=== PATIENT | female | born 1990 | race Two or more races ===

== ENCOUNTER 2020-07-16 13:33 | Outpatient (REF) | payer OTHER, SELFPAY ==
[2020-07-19 09:42] LABS: BV Int Neg Control Negative (Negative); BV Int Pos Control Positive (Positive)
== END 2020-07-16 13:34 | disposition home or self-care (01) ==
LOC: HO.LAB 13:33
PROVIDERS: PCP Internal Medicine; Visit Provider Advanced Practice Midwife
DX: A59.9 Trichomoniasis, unspecified (principal); N89.8 Other specified noninflammatory disorders of vagina; N91.5 Oligomenorrhea, unspecified; N64.3 Galactorrhea not associated with childbirth
CPT/HCPCS: 87480; 87510; 87660; 99212

== ENCOUNTER 2020-07-28 21:07 | Emergency (ER) | payer OTHER, SELFPAY ==
[2020-07-28 21:08] VITALS: BP 137/89; PULSE 90; RESP 20; TEMP 36.4; O2SAT 100; BMI 24.7
[2020-07-29 00:01] LABS: Glucose Urine UA NEG (NEG); Leukocyte Esterase Urine NEG (NEG); Nitrite Urine NEG (NEG); PH 6.5 (5.0-8.0); Specific Gravity - Urine 1.025 (1.005-1.025); Urine Blood NEG (NEG); Urine Ketones NEG (NEG); Urine Protein NEG (NEG-TRACE)
[2020-07-29 00:02] LABS: Appearance Urine HAZY; Color Urine YELLOW
[2020-07-29 00:03] LABS: Imm Gran Abs Auto 0.01 X10*3/uL (0.00-0.03); Imm Gran Pct Auto 0.1 % (0.0-0.4); MANUAL DIFF FLAG SCAN; PLT CLUMP 1; Red Cell Distribution Width 15.3 % (11.0-16.0); SCAN SMEAR FLAG 1
[2020-07-29 00:05] LABS: Basophils Absolute Auto 0.1 X10*3/uL (0.0-0.2); Basophils Percent Auto 0.6 % (0-2); Eosinophils Absolute Auto 0.2 X10*3/uL (0.0-0.4); Eosinophils Percent Auto 2.3 % (0-4); Hematocrit 35.1 % (37-47); Hemoglobin 11.2 g/dl (12.0-16.0); Lymphocytes Absolute Auto 2.4 X10*3/uL (1.2-4.9); Lymphocytes Percent Auto 29.3 % (20-40); Mean Corpuscular HGB Conc 31.9 g/dl (31.0-35.0); Mean Corpuscular Hemoglobin 22.7 pg (27.0-33.0); Mean Corpuscular Volume 71.1 fL (80-98); Mean Platelet Volume 10.3 fL (9.4-12.3); Monocytes Absolute Auto 1.3 X10*3/uL (0.1-1.2); Monocytes Percent Auto 15.4 % (2-11); Neutrophils Absolute Auto 4.3 X10*3/uL (2.0-8.3); Neutrophils Percent Auto 52.3 % (45-73); Platelet Count 370 X10*3/uL (160-400); Red Blood Count 4.94 X10*6/uL (4.20-5.50); White Blood Count 8.2 X10*3/uL (4.8-10.8)
[2020-07-29 00:06] LABS: SLIDE REVIEW VERIFIED
[2020-07-29 00:07] LABS: Bacteria Urine 2+ /LPF; Mucus Urine 1+ /LPF; Squamous Epithelial Cell Urine 3+ /LPF
[2020-07-29 00:08] LABS: UPreg QC Valid YES; Urine Pregnancy NEGATIVE (NEGATIVE)
[2020-07-29 00:28] LABS: Alanine Aminotransferase 68 U/L (0-31); Albumin Level 4.1 g/dL (3.5-5.0); Alkaline Phosphatase 225 U/L (39-117); Anion Gap 11 (12-20); Aspartate Amino Transferase 60 U/L (5-31); Bilirubin Total 0.4 mg/dL (0.0-1.0); Blood Urea Nitrogen 13 mg/dL (9-16); Calcium 8.9 mg/dL (8.4-10.2); Carbon Dioxide 25 mmol/L (22-29); Chloride 102 mmol/L (96-108); Creatinine Clr Calc Pharmacy 104.7; Estimated Glomerular Filt Rate > 60; Glucose Random 70 mg/dL (60-115); Magnesium 2.1 mg/dL (1.6-2.6); Potassium 3.9 mmol/l (3.3-5.1); Sodium 134 mmol/L (135-145); Total Protein 7.2 g/dL (6.5-8.0)
--- NOTE | 2020-07-29 01:00 | ED.LOWEXIN ---
HPI - Extremity Injury (Lower) General Chief Complaint: Extremity Injury, Lower Stated Complaint: Swollen ankle Time Seen by Provider: 07/28/20 21:45 Source: patient Mode of arrival: ambulatory Limitations: no limitations History of Present Illness HPI Narrative: 29-year-old female who denies any significant past medical history presents today with complaint of intermittent him bilateral ankle pain and pain on the plantar aspect of the feet For the past couple of days and also sometimes will feel like her ankles are swollen. She denies any injury. No rash. No lower extremity weakness. No swelling currently. Also reports she would like a test. No GI symptoms. Treatments prior to arrival: cold therapy Related Data Home Medications Medication Instructions Recorded Confirmed quetiapine 200 mg tablet 200 mg PO BEDTIME 07/16/20 Previous Rx's Medication Instructions Recorded ondansetron HCl 4 mg tablet 4 mg PO ONCE #1 tab 07/16/20 Allergies Allergy/AdvReac Type Severity Reaction Status Date / Time No Known Allergies Allergy Verified 07/16/20 13:41 Review of Systems Review of Systems: Constitutional: No Weight loss, No Fever, No Chills, No Night Sweats, No Fatigue, No Malaise ENT/Mouth: No Hearing loss, No Ear Pain, No Nasal Congestion, No Sinus Pain, No Hoarseness, No sore throat, No Rhinorrhea, No Swallowing Difficulty Eyes: No Eye Pain, No Swelling, No Redness, No Foreign Body, No Discharge, No Vision Changes Cardiovascular: No Chest Pain, No SOB, No Dyspnea on Exertion, No Orthopnea, No Edema, No Palpitations Respiratory: No Cough, No Sputum, No Wheezing, No Smoke Exposure, No Dyspnea Gastrointestinal: No Nausea, No Vomiting, No Diarrhea, No Constipation, No abdominal Pain, No Hematochezia, No Melena Genitourinary: no irregular bleeding, No Dysuria, No Urinary Frequency, No Hematuria, No Urinary Incontinence Musculoskeletal: No joint pain, No Myalgias, No Joint Swelling Skin: No Skin Lesions, No rash Neuro: No Weakness, No Numbness, No Paresthesias,No Dizziness, No Headache Psych: No Social Issues Heme/Lymph: No Bruising, No Bleeding,No Lymphadenopathy Endocrine: No Polyuria, No Polydipsia, No Temperature Intolerance Yes all other systems are reviewed and are negative PMFSH Past Medical History Medical History (Updated 07/29/20 @ 01:01 by Devan Ornelas NP) Bipolar 1 disorder Insomnia PTSD (post-traumatic stress disorder) Surgical History (Updated 07/16/20 @ 13:36 by Lupe Matute) No history of previous surgery Social History Social History (Updated 07/16/20 @ 13:43 by Lupe Matute) Alcohol intake: never Smoking Status: Current every day smoker Tobacco Type: Cigarette Cigarettes Per Day: 3 Use of substances other than those prescribed or required for medical reasons: No Advance Directives: No Advance Directives Information Provided: Yes Gender identity: female Physical Exam Vital Signs: Vital Signs: Last Vital Signs Temp 97.5 F 07/28/20 21:08 Pulse 90 07/28/20 21:08 Resp 20 07/28/20 21:08 BP 137/89 07/28/20 21:08 Pulse Ox 100 07/28/20 21:08 Body Mass Index 24.7 Reviewed Const: General: cooperative and healthy appearing; No acute distress or intoxicated appearing Nutritional Appearance: average body habitus Orientation/consciousness: patient oriented x3 HENMT: Head: Yes normal to inspection Eyes: General: appearance normal, both eyes and all related structures Neck: Neck: Yes normal visual inspection, No positive Brudzinski's sign, No positive Kernig's sign and No tender Thyroid: Thyroid normal Chest: Chest palpation & inspection: normal inspection of the chest Resp: Effort & Inspection: normal respiratory effort Cardio: Jugular venous distension: no JVD : General: Yes no CVA tenderness Back/Spine/Pelvis: Back: no CVA tenderness Skin: General skin exam: no rashes or lesions noted Neuro: General: patient oriented x3 Extrem: Other: negative Homans No lower extremity swelling Sensation within normal limits Full range of motion General: Yes normal to inspection Course Course Course Narrative: Lab findings reviewed slight elevation in LFT no previous to compare to. Question chronicity of this. No abdominal pain nausea vomiting diarrhea. As it relates to the intermittent swelling below the ankles no swelling present at this time although she reports it feels like feet sometimes feel like swelling and feels well right now. Upon re-evaluation she asked if this could be sign of COVID and she knows that [place] at the mall and there is lot of people with COVID and this is 1 of her concerns. COVID test was also offered she declined she said she will come back if she knows she has been around advancement positive. MDM - Extremity Injury (Lower) Lab Data Result diagrams: 07/28/20 23:55 07/28/20 23:55 Labs: Lab Results 07/28/20 07/28/20 07/28/20 Range/Units 23:55 23:55 23:55 WBC 8.2 (4.8-10.8) X10*3/uL RBC 4.94 (4.20-5.50) X10*6/uL Hgb 11.2 L (12.0-16.0) g/dl Hct 35.1 L (37-47) % MCV 71.1 L (80-98) fL MCH 22.7 L (27.0-33.0) pg MCHC 31.9 (31.0-35.0) g/dl RDW 15.3 (11.0-16.0) % Plt Count 370 (160-400) X10*3/uL MPV 10.3 (9.4-12.3) fL Immature Gran % (Auto) 0.1 (0.0-0.4) % Neut % (Auto) 52.3 (45-73) % Lymph % (Auto) 29.3 (20-40) % [place] % (Auto) 15.4 H (2-11) % Eos % (Auto) 2.3 (0-4) % Baso % (Auto) 0.6 (0-2) % Lymph # (Auto) 2.4 (1.2-4.9) X10*3/uL [place] # (Auto) 1.3 H (0.1-1.2) X10*3/uL Eos # (Auto) 0.2 (0.0-0.4) X10*3/uL Baso # (Auto) 0.1 (0.0-0.2) X10*3/uL Abs Immat Gran (auto) 0.01 (0.00-0.03) X10*3/uL Absolute Neuts (auto) 4.3 (2.0-8.3) X10*3/uL Absolute Nucleated RBC 0.000 (0.0-0.012) X10*3/uL Nucleated RBC % (auto) 0.0 (0.0-0.2) /100WBC Smear Tech's Comments VERIFIED Sodium 134 L (135-145) mmol/L Potassium 3.9 (3.3-5.1) mmol/l Chloride 102 (96-108) mmol/L Carbon Dioxide 25 (22-29) mmol/L Anion Gap 11 L (12-20) BUN 13 (9-16) mg/dL Creatinine 0.67 (0.5-1.4) mg/dL Estim Creat Clear Calc 104.7 Estimated GFR > 60 Random Glucose 70 (60-115) mg/dL Calcium 8.9 (8.4-10.2) mg/dL Magnesium 2.1 (1.6-2.6) mg/dL Total Bilirubin 0.4 (0.0-1.0) mg/dL AST 60 H (5-31) U/L ALT 68 H (0-31) U/L Alkaline Phosphatase 225 H (39-117) U/L Total Protein 7.2 (6.5-8.0) g/dL Albumin 4.1 (3.5-5.0) g/dL Urine Color YELLOW Urine Appearance HAZY Urine pH 6.5 (5.0-8.0) Ur Specific [place] 1.025 (1.005-1.025) Urine Protein NEG (NEG-TRACE) MG/DL Urine Glucose (UA) NEG (NEG) MG/DL Urine Ketones NEG (NEG) MG/DL Urine Blood NEG (NEG) Urine Nitrite NEG (NEG) Ur Leukocyte Esterase NEG (NEG) Urine RBC 1-4 (0) /HPF Urine WBC 1-4 (0-4) /HPF Ur Squamous Epith Cells 3+ /LPF Urine Bacteria 2+ /LPF Urine Mucus 1+ /LPF Urine Test NEGATIVE (NEGATIVE) Discharge Plan Discharge Clinical Impression: Arthralgia of ankle Qualifiers: Laterality: bilateral Qualified Code(s): M25.571 - Pain in right ankle and joints of right foot Patient Disposition: Home, Self-Care Instructions: Arthralgia (ED) Prescriptions: No Action ondansetron HCl [Zofran] 4 mg tablet 4 mg PO ONCE Qty: 1 RF: 0 Referrals: Melissa Conrad MD [Primary Care Provider] - 5 days Interventions: ED Discharge Assessment Last Done: 07/29/20 01:10 Discharge Date/Time: 07/29/20 01:10
== END 2020-07-29 01:10 | disposition home or self-care (01) ==
PROVIDERS: Nurse Practitioner Primary Care; Emergency Provider Student in an Organized Health Care Education/Training Program; PCP Internal Medicine
DX: M25.571 Pain in right ankle and joints of right foot (principal); M25.572 Pain in left ankle and joints of left foot; F17.210 Nicotine dependence, cigarettes, uncomplicated; Z71.6 Tobacco abuse counseling; Z79.899 Other long term (current) drug therapy
CPT/HCPCS: 36415; 80053; 81001; 81025; 83735; 85025; 99283; 99284

== ENCOUNTER 2020-10-28 17:16 | Outpatient (REF) | payer OTHER, SELFPAY ==
[2020-10-28 17:54] LABS: MANUAL DIFF FLAG NO
[2020-10-28 17:57] LABS: Basophils Percent Auto 0.4 % (0-2); Eosinophils Absolute Auto 0.1 X10*3/uL (0.0-0.4); Eosinophils Percent Auto 1.4 % (0-4); Hemoglobin 12.4 g/dl (12.0-16.0); Imm Gran Abs Auto 0.02 X10*3/uL (0.00-0.03); Imm Gran Pct Auto 0.2 % (0.0-0.4); Lymphocytes Absolute Auto 2.6 X10*3/uL (1.2-4.9); Lymphocytes Percent Auto 29.3 % (20-40); Mean Corpuscular HGB Conc 31.8 g/dl (31.0-35.0); Mean Corpuscular Hemoglobin 23.3 pg (27.0-33.0); Mean Corpuscular Volume 73.2 fL (80-98); Mean Platelet Volume 10.2 fL (9.4-12.3); Monocytes Absolute Auto 0.7 X10*3/uL (0.1-1.2); Monocytes Percent Auto 8.1 % (2-11); Neutrophils Absolute Auto 5.4 X10*3/uL (2.0-8.3); Neutrophils Percent Auto 60.6 % (45-73); Platelet Count 452 X10*3/uL (160-400); Red Blood Count 5.33 X10*6/uL (4.20-5.50); Red Cell Distribution Width 18.8 % (11.0-16.0)
[2020-10-28 18:21] LABS: Alanine Aminotransferase 229 U/L (0-31); Albumin Level 4.5 g/dL (3.5-5.0); Alkaline Phosphatase 268 U/L (39-117); Anion Gap 10 (12-20); Aspartate Amino Transferase 173 U/L (5-31); Bilirubin Total 0.4 mg/dL (0.0-1.0); Blood Urea Nitrogen 17 mg/dL (9-16); Calcium 9.3 mg/dL (8.4-10.2); Carbon Dioxide 27 mmol/L (22-29); Chloride 106 mmol/L (96-108); Cholesterol 184 mg/dL; Estimated Glomerular Filt Rate > 60; Glucose Random 73 mg/dL (60-115); HDL Cholesterol 68 mg/dL; LDL Cholesterol Calculated 101 mg/dl; Potassium 4.4 mmol/L (3.3-5.1); Sodium 139 mmol/L (135-145); Triglycerides 79 mg/dL
[2020-10-28 18:41] LABS: Ferritin 16 ng/mL (10-122); TSH reflex Free T4 0.71 uIU/mL (0.32-4.0); Thyroid Stimulating Hormone 0.73 uIU/mL (0.32-4.0)
[2020-10-30 09:06] LABS: Follicle Stimulating Hormone 4.5 mIU/mL; Prolactin 2.8 ng/mL
[2020-10-30 09:57] LABS: DHEA Sulfate 150 mcg/dL (23-266)
[2020-11-03 19:12] LABS: Testosterone, Free 3.2 pg/mL (0.1-6.4); Testosterone, Total 33 ng/dL (2-45)
== END 2020-10-28 17:17 | disposition home or self-care (01) ==
LOC: HO.LAB 17:16
PROVIDERS: Advanced Practice Midwife; PCP Internal Medicine; Visit Provider Internal Medicine
DX: F31.9 Bipolar disorder, unspecified (principal); F43.12 Post-traumatic stress disorder, chronic; R53.83 Other fatigue; N91.5 Oligomenorrhea, unspecified; N64.3 Galactorrhea not associated with childbirth
CPT/HCPCS: 36415; 80053; 80061; 82627; 82728; 83001; 83498; 84146; 84402; 84403; 84443; 85025

== ENCOUNTER → 2020-11-16 15:47 | Outpatient (BNVA) | payer OTHER, SELFPAY | PROVIDERS: Visit Provider Advanced Practice Midwife | CPT/HCPCS: Q3014 ==

== ENCOUNTER 2021-03-16 09:47 | Emergency (ER) | payer OTHER, SELFPAY ==
[2021-03-16 09:52] VITALS: BP 136/78; PULSE 94; RESP 18; TEMP 35.9; O2SAT 99; BMI 25.6
--- NOTE | 2021-03-16 10:14 | ED.GENADULT ---
HPI - General Adult General Chief complaint: General Medical Stated complaint: headache, congestion Time Seen by Provider: 03/16/21 10:14 Source: patient Mode of arrival: ambulatory Limitations: no limitations History of Present Illness HPI narrative: patient has not been vaccinated for COVID, nasal congestion, headache for one week, cough Onset (ago): week(s) Location: head Radiation: non-radiation Severity: mild Treatments prior to arrival: none Related Data Home Medications Medication Instructions Recorded Confirmed quetiapine 200 mg tablet 200 mg PO BEDTIME 07/16/20 Previous Rx's Medication Instructions Recorded ondansetron HCl 4 mg tablet 4 mg PO ONCE #1 tab 07/16/20 fluticasone propionate [Flonase 1 spray INTRANASAL DAILY #16 g 03/16/21 Allergy Relief] Allergies Allergy/AdvReac Type Severity Reaction Status Date / Time No Known Allergies Allergy Verified 11/16/20 15:48 Review of Systems Constitutional: Constitutional: Reports no additional constitutional complaints Eyes: Eyes: Reports no additional eye complaints ENT: Denies dizziness Cardiovascular: Cardiovascular: Reports no additional cardiovascular complaints Respiratory: Respiratory: Reports as per HPI Gastrointestinal: Gastrointestinal: Reports no additional gastrointestinal complaints Genitourinary: Genitourinary: Reports no additional female genitourinary complaints Musculoskeletal: Musculoskeletal: Reports no additional musculoskeletal complaints Integumentary/Breasts: Skin/Breast: Denies rash Neurologic: Reports system reviewed and no additional complaints, except as documented, Denies dizziness and Denies Sensory deficit (Neuro) Psychiatric: Psychiatric: Denies anxiety PMFSH Past Medical History Medical History Bipolar 1 disorder Insomnia PTSD (post-traumatic stress disorder) Surgical History No history of previous surgery Social History Social History Alcohol intake: never Cigarettes Per Day: 3 Advance Directives: Yes Advance Directives Information Provided: No Advance Directives on File: No Gender identity: female Physical Exam Vital Signs: Vital Signs: Last Vital Signs Temp 96.6 F L 03/16/21 09:52 Pulse 94 03/16/21 09:52 Resp 18 03/16/21 09:52 BP 136/78 03/16/21 09:52 Pulse Ox 99 03/16/21 09:52 Body Mass Index 25.6 Const: General: healthy appearing Nutritional Appearance: average body habitus Orientation/consciousness: oriented to person and patient oriented x3 Limitations: no limitations HENMT: Other: bilateral TMs with retractions and fluid Head: Yes normal to inspection Ears: external ears normal General nose exam: Normal external nose present Mouth: Normal oral and palatal mucosa present and oropharynx normal Throat: Yes posterior oropharynx normal Eyes: General: appearance normal, both eyes and all related structures Neck: Other: supple Neck: Yes normal visual inspection Chest: Chest palpation & inspection: normal inspection of the chest Resp: Auscultation: clear to auscultation bilaterally Cardio: Jugular venous distension: no JVD Rate: regular rate Rhythm: regular rhythm Heart sounds: S1 normal heart sound present and S2 normal heart sound present GI: Inspection: Yes normal to inspection Palpation (GI): Soft to palpation, nontender and No hepatosplenomegaly present Auscultation: normal bowel sounds : General: Yes no CVA tenderness Back/Spine/Pelvis: Back: no CVA tenderness Skin: General skin exam: no rashes or lesions noted Neuro: General: oriented to person and patient oriented x3 Cranial nerves: Yes CN's II-XII intact bilaterally Motor exam (neuro): 5/5 motor strength present throughout Sensory Exam: No Sensory deficit (Neuro) Extrem: General: Yes normal to inspection Psych: Appearance: grossly normal Course Reevaluation(s) Reevaluation #1: patient is will not obtain xray at this time, lungs clear, oxygen is normal. Will treat for sinusitis Time: 11:28 Medical Decision Making Lab Data Labs: Lab Results 03/16/21 03/16/21 Range/Units 10:40 10:40 Urine Test POSITIVE H (NEGATIVE) Coronavirus (PCR) NEGATIVE (Negative) Influenza Type A (PCR) NEGATIVE (Negative) Influenza Type B (PCR) NEGATIVE (Negative) RSV RNA Qual (PCR) NEGATIVE (Negative) Discharge Plan Discharge Clinical Impression: Sinusitis Qualifiers: Sinusitis location: frontal Chronicity: acute Recurrence: non-recurrent Qualified Code(s): J01.10 - Acute frontal sinusitis, unspecified Qualifiers: Weeks of gestation: unspecified Qualified Code(s): Z34.90 - Encounter for supervision of normal , unspecified, unspecified trimester Patient Disposition: Home, Self-Care Instructions: (ED), Sinusitis (ED) Prescriptions: New fluticasone propionate [Flonase Allergy Relief] 50 mcg/actuation spray,suspension 1 spray intranasal DAILY Qty: 16 RF: 0 No Action ondansetron HCl [Zofran] 4 mg tablet 4 mg PO ONCE Qty: 1 RF: 0 Referrals: Melissa Conrad MD [Primary Care Provider] - 1 week Chris Medley MD [Physician] - 1 week
[2021-03-16 10:51] LABS: UPreg QC Valid YES; Urine Pregnancy POSITIVE (NEGATIVE)
[2021-03-16 11:24] LABS: Influenza A PCR NEGATIVE (Negative); Influenza B PCR NEGATIVE (Negative); Resp Syncy Virus RNA Qual PCR NEGATIVE (Negative); SARS COV2 PCR INHOUSE NEGATIVE (Negative)
== END 2021-03-16 11:40 | disposition home or self-care (01) ==
PROVIDERS: Emergency Provider Emergency Medicine; PCP Internal Medicine
DX: O99.519 Diseases of the respiratory system complicating pregnancy, unspecified trimester (principal); J01.10 Acute frontal sinusitis, unspecified; Z3A.00 Weeks of gestation of pregnancy not specified; Z20.822 Contact with and (suspected) exposure to COVID-19
CPT/HCPCS: 0241U; 36415; 81025; 99283

== ENCOUNTER → 2021-03-24 13:39 | Outpatient (BNVA) | payer OTHER, SELFPAY | PROVIDERS: Visit Provider Advanced Practice Midwife | DX: N92.6 Irregular menstruation, unspecified (principal) | CPT/HCPCS: 99212 ==

== ENCOUNTER 2021-03-31 10:35 | Outpatient (REF) | payer OTHER, SELFPAY ==
--- NOTE | ~2021-03-31 | US_ITS ---
EXAMINATION: US OBSTETRICAL ULTRASOUND CLINICAL INFORMATION: Irregular menstruation COMPARISON: None. LMP: 02/13/2021. Gestational age by maternal dates is 6 weeks 4 days. Estimated date of delivery by maternal dates is 11/20/2021. TECHNIQUE: Transabdominal imaging of pelvis was performed. FINDINGS: There is a single intrauterine gestational sac with visible yolk sac, embryo/fetus, and cardiac activity. There is no significant subchorionic hemorrhage or hematoma. HR: 138 beats per minute. CRL (crown rump length): 0.90 cm . Gestational age by ultrasound 7 weeks and 0 days. ALAYNA (estimated date of delivery): 11/17/2021. +/- 4 days. MATERNAL ADNEXA: The right maternal ovary measures 3.9 x 1.5 x 2.3 cm. The left maternal ovary measures 3.5 x 2.4 x 2.9 cm. There is no significant maternal adnexal mass. No maternal pelvic ascites. US/US OB <= 14 weeks fetus IMPRESSION: 1. Single intrauterine gestation with ultrasound gestational age of 7 weeks and 0 days +/- 4 days. 2. Estimated date of delivery is 11/17/2021 +/- 4 days. 3. No maternal adnexal mass or pelvic ascites.
== END 2021-03-31 10:36 | disposition home or self-care (01) ==
LOC: HO.HMGCX 10:35
PROVIDERS: Visit Provider Advanced Practice Midwife
DX: Z34.91 Encounter for supervision of normal pregnancy, unspecified, first trimester (principal)
CPT/HCPCS: 76801

== ENCOUNTER 2021-05-12 12:22 | Emergency (ER) | payer OTHER, SELFPAY ==
[2021-05-12 12:35] VITALS: BP 129/80; PULSE 89; RESP 18; TEMP 36.8; O2SAT 100; BMI 27.4
--- NOTE | 2021-05-12 14:26 | ED_ITS ---
HPI - General Adult General Chief complaint: General Medical Stated complaint: vaginal burn ?yeast inf Time Seen by Provider: 05/12/21 14:17 Source: patient Limitations: no limitations History of Present Illness HPI narrative: Patient presents to the ER with complaints of vaginal itching and burning. Patient is a . Patient states she recently was seen was a [facility] and started on antibiotic for UTI although she did have symptoms. After taking the antibiotics while she began to have some burning and itching in the vaginal area. Patient denies any history of chlamydia gonorrhea in the past. Patient states this is her 1st . Patient denies nausea vomiting fever chills. Related Data Previous Rx's Medication Instructions Recorded fluticasone propionate 50 1 spray INTRANASAL DAILY #16 g 03/16/21 mcg/actuation nasal spray,suspension (Flonase Allergy Relief) vitamin with calcium 1 tab PO DAILY #30 tab 03/24/21 no.72-iron 27 mg-folic acid 1 mg tablet ( Vitamins Plus Low Iron) clotrimazole 2 % vaginal cream 1 appful VAGINAL BEDTIME 3 Days g 05/12/21 (Clotrimazole 3 Day) metronidazole 500 mg tablet 500 mg PO BID 7 Days #14 tab 05/12/21 (Flagyl) Allergies Allergy/AdvReac Type Severity Reaction Status Date / Time No Known Allergies Allergy Verified 05/12/21 12:35 Review of Systems Constitutional: Constitutional: Denies chills, Denies fatigue and Denies fever(s) Cardiovascular: Cardiovascular: Denies chest pain and Denies dyspnea Respiratory: Respiratory: Denies dyspnea Gastrointestinal: Gastrointestinal: Denies diarrhea, Denies nausea and Denies vomiting Genitourinary: Genitourinary: Reports vaginal discharge and Reports vaginal pruritus Musculoskeletal: Musculoskeletal: Reports no additional musculoskeletal complaints Neurologic: Reports system reviewed and no additional complaints, except as documented Endocrine: Endocrine: Denies fatigue PMFSH Past Medical History Attestation statement: The following information was validated with the patient. Medical History Bipolar 1 disorder Insomnia PTSD (post-traumatic stress disorder) Surgical History No history of previous surgery Social History Social History Alcohol intake: never Patient Tobacco Use Status: Former Tobacco user Cigarettes Per Day: 3 Advance Directives: No Advance Directives Information Provided: No Patient : Yes Gender identity: Female Physical Exam Vital Signs: Vital Signs: Last Vital Signs Temp 97.2 F 05/12/21 15:29 Pulse 75 05/12/21 15:29 Resp 16 05/12/21 15:29 BP 131/82 05/12/21 15:29 Pulse Ox 99 05/12/21 15:29 Body Mass Index 27.4 vital signs have been reviewed as normal and appeared to be correct. Blood pressure normal. Heart rate normal. Respiration rate normal. Temperature normal. Oxygen saturation normal. Appearance: Alert. Oriented X3. No acute distress. Head: Normal external exam. Normocephalic. Atraumatic. Eyes: PERRLA. EOMI. Conjunctiva and sclera normal. Eyelids normal. ENT: Pharynx normal. Uvula midline. Moist mucous membranes. CVS: Heart regular rate and rhythm no murmurs and rubs Respiratory: Breath sounds are clear to auscultation bilaterally. No accessory muscle use noted. Abdomen: Soft nontender no rebound or guarding positive bowel sound exam: No cervical motion tenderness vaginal vault some white discharge present no adnexal tenderness Back: Full range of motion noted. Skin: Skin warm and dry. Normal skin color. Normal skin turgor. No rashes/lesions/lacerations noted. Extremities: No lower extremity edema. Extremities exhibit normal range of motion. Extremities nontender. Neuro: Oriented X 3. No motor deficit. No sensory deficit. Reflexes normal. Course Course Course Narrative: UTI Yeast infection Bacterial vaginosis Chlamydia Gonorrhea Pelvic exam done bacterial vaginosis Trichomonas a views cultures sent UA chlamydia gonorrhea sent Case discussed with pharmacist and Dr. Hernandez will treat with Flagyl 500 mg b.i.d. x7 days for Trichomonas and clotrimazole for 3 days for yeast infection. Medical Decision Making Lab Data Labs: Lab Results 05/12/21 Range/Units 14:33 Urine Color YELLOW Urine Appearance CLEAR Urine pH 6.5 (5.0-8.0) Ur Specific [place] 1.020 (1.005-1.025) Urine Protein NEG (NEG-TRACE) MG/DL Urine Glucose (UA) NEG (NEG) MG/DL Urine Ketones NEG (NEG) MG/DL Urine Blood NEG (NEG) Urine Nitrite NEG (NEG) Ur Leukocyte Esterase TRACE H (NEG) Urine RBC 0-2 (0) /HPF Urine WBC 10-14 H (0-4) /HPF Ur Squamous Epith Cells 1+ /LPF Urine Bacteria TRACE /LPF Urine Mucus 1+ /LPF Discharge Plan Discharge Clinical Impression: Trichomonas infection, Vaginal yeast infection Patient Disposition: Home, Self-Care Instructions: Trichomoniasis (ED), Yeast Infection (ED) Prescriptions: New metronidazole [Flagyl] 500 mg tablet 500 mg PO BID 7 Days Qty: 14 RF: 0 Clotrimazole 3 Day 2 % cream 1 appful vaginal BEDTIME 3 Days RF: 0 No Action fluticasone propionate [Flonase Allergy Relief] 50 mcg/actuation spray,suspension 1 spray intranasal DAILY Qty: 16 RF: 0 Vitamin Plus Low Iron 27 mg iron- 1 mg tablet 1 tab PO DAILY Qty: 30 RF: 11
[2021-05-12 14:52] LABS: Glucose Urine UA NEG (NEG); Leukocyte Esterase Urine TRACE (NEG); Nitrite Urine NEG (NEG); PH 6.5 (5.0-8.0); UACC Culture Trigger YES; Urine Blood NEG (NEG); Urine Ketones NEG (NEG); Urine Protein NEG (NEG-TRACE)
[2021-05-12 15:00] LABS: Appearance Urine CLEAR; Color Urine YELLOW
[2021-05-12 15:12] LABS: Bacteria Urine TRACE /LPF; Mucus Urine 1+ /LPF; RBC Urine 0-2 /HPF (0); Squamous Epithelial Cell Urine 1+ /LPF
[2021-05-12 15:29] VITALS: BP 131/82; PULSE 75; RESP 16; TEMP 36.2; O2SAT 99
[2021-05-12 16:45] LABS: CT PCR NOT DETECTED (Not Detect.); NG PCR NOT DETECTED (Not Detect.)
[2021-05-13 08:46] LABS: BV Int Neg Control Negative (Negative); BV Int Pos Control Positive (Positive)
== END 2021-05-12 16:08 | disposition home or self-care (01) ==
PROVIDERS: Physician Assistant; Emergency Provider Emergency Medicine; PCP Internal Medicine
DX: A59.01 Trichomonal vulvovaginitis (principal); Z87.891 Personal history of nicotine dependence; Z79.899 Other long term (current) drug therapy
CPT/HCPCS: 81001; 87086; 87480; 87491; 87510; 87591; 87660; 99284

== ENCOUNTER 2021-06-03 13:40 | Outpatient (REF) | payer OTHER, SELFPAY | END 2021-06-03 13:41 | disposition home or self-care (01) | LOC: HO.LAB 13:40 | PROVIDERS: PCP Internal Medicine; Visit Provider Internal Medicine | DX: Z33.1 Pregnant state, incidental (principal); Z20.822 Contact with and (suspected) exposure to COVID-19; H91.11 Presbycusis, right ear; G44.209 Tension-type headache, unspecified, not intractable; F17.201 Nicotine dependence, unspecified, in remission | CPT/HCPCS: C9803; U0003; U0005 ==

== ENCOUNTER 2022-09-07 16:38 | Emergency (ER) | payer OTHER, SELFPAY ==
--- OUTSIDE RECORDS SUMMARY | 2022-09-07 17:13 | XMS_ITS | Continuity of Care Document ---
:1990 Author Organization [facility] Address [address] [place] [id number]- Care Team Providers Name Role Phone Melissa Conrad MD Primary Care Physician [id number] Date(s): 12/11/20 - 12/11/[address] [address]- Discharge Disposition: A-D/C Home Attending Physician: Luther Munson MD Admitting Physician: Luther Munson MD Referring Physician: Not on Staff, Referring MD Allergies, Adverse Reactions, Alerts Substance Reaction Severity Status NKA Active Medications Keflex monohydrate 500 mg oral capsule = 500 mg, By Mouth, 4 times a day, # 20 capsule, 0 Refills, Maintenance, 08/02/19 1:38:07 EST Start Date: 08/02/19 Status: OrderedKeflex monohydrate 500 mg oral capsule 1 capsule = 500 mg, By Mouth, Every 12 hours, for 7 days, # 14 capsule, 0 Refills, Acute 12/18/20 6:40:00 EDT, 12/11/20 6:40:00 EDT, Capsule, [facility] #[id number], Partial fill upon patient request if the prescription is for a schedule II opioi... Start Date: 12/11/20 Stop Date: 12/18/20 Status: Orderedondansetron 4 mg oral tablet 1 tablet = 4 mg, By Mouth, Once, # 15 tablet, 0 Refills, Soft Stop, 08/02/19 1:40:41 EST Start Date: 08/02/19 Status: OrderedProzac Capsule 20 mg, By Mouth, Daily, Maintenance, 07/24/12 15:50:33 Start Date: 07/24/12 Status: OrderedSeroquel Tablet = 50 mg, By Mouth, 2 times a day, 0 Refills, Maintenance, Tablet Start Date: 07/24/12 Status: Ordered Vital Signs Most recent to oldest [Reference 1 2 3 Range]: Oxygen Saturation [94-100 %] 97 % 98 % (12/11/20 7:18 AM) (12/11/20 4:42 AM) Pulse Rate [55-90 bpm] 107 bpm 92 bpm 95 bpm *H* *H* *H* (12/11/20 7:18 AM) (12/11/20 6:30 AM) (12/11/20 6:17 A M) Blood Pressure [90-138/55-84 mm 127/70 mm Hg 128/86 mm Hg 131/86 mm Hg Hg] (12/11/20 7:18 AM) (12/11/20 6:17 AM) (12/11/20 4:42 A M) Respiratory Rate [16-30 br/min] 18 br/min 16 br/min 96 br/min (12/11/20 7:18 AM) (12/11/20 6:30 AM) *H* (12/11/20 6:17 AM) Temperature [96.8-100.4 DegF] 98.8 DegF 98.2 DegF (12/11/20 7:18 AM) (12/11/20 4:42 AM) Mode of Delivery (Oxygen) Room air Room air (12/11/20 7:18 AM) (12/11/20 4:42 AM) Blood pressure sites Arm, left (12/11/20 4:42 AM) Temperature Route Oral Oral (12/11/20 7:18 AM) (12/11/20 4:42 AM) Social History Social History Type Response Tobacco Use: 4 or less cigarettes(le ss than 1/4 pack)/day in last 30 days. Sex
--- OUTSIDE RECORDS SUMMARY | 2022-09-07 17:13 | XMS_ITS | Continuity of Care Document ---
:1990 Author Organization [facility] Address [address] [place] [id number]- Care Team Providers Name Role Phone Melissa Conrad MD Primary Care Physician Encounter [facility] Date(s): 11/17/21 - 12/27/[address] [address]- Attending Physician: Toma Santacruz DO Referring Physician: Iris Curran CNM Allergies, Adverse Reactions, Alerts No Known Allergies Immunizations Given and Recorded Vaccine Date Status Refusal Reason tetanus/diphtheria/pertussis, acel(Tdap) 08/30/21 Given Medications docusate-senna 50 mg-187 mg oral tablet 1 tablet, By Mouth, Daily at bedtime, # 30 tablet, 0 Refills, Maintenance, 11/28/21 7:44:00 EDT, Tablet, [facility] #[id number], Partial fill upon patient request if the prescription is for a schedule II opioid drug., 1 tablet By Mouth Daily at b... Start Date: 11/28/21 Status: Orderedferrous sulfate 325 mg oral tablet 1 tablet = 325 mg, By Mouth, 2 times a day, # 60 tablet, 3 Refills, Maintenance, 05/06/21 8:53:00 EDT, [facility] #[id number], Partial fill upon patient request if the prescription is for a schedule II opioid drug., 158, cm, 05/05/21 18:37:00 EDT... Start Date: 05/06/21 Status: Orderedibuprofen 600 mg oral tablet 600 mg, 1, tablet, By Mouth, Every 6 hours, # 50 tablet, Refills 0, Tot. Refills 0, Maintenance, 11/28/21 7:41:00 EDT, Route to Pharmacy Electronically, [facility] #[id number], Partial fill upon patient request if the prescription is for a schedu... Start Date: 11/28/21 Status: OrderedoxyCODONE 5 mg oral tablet 5 mg, 1, tablet, By Mouth, Every 6 hours, PRN, # 10 tablet, Refills 0, Tot. Refills 0, Acute 12/29/21 0:00:00 EDT, for pain, 11/28/21 7:42:00 EDT, Route to Pharmacy Electronically, [facility]#[id number], Partial fill upon patient request, 158, c... Start Date: 11/28/21 Stop Date: 12/29/21 Status: OrderedTylenol 325 mg oral capsule 2 capsule = 650 mg, By Mouth, Every 4 hours, PRN as needed for pain, # 50 capsule, 0 Refills, Maintenance, 11/28/21 7:41:00 EDT, Capsule, [id number], Partial fill upon patient request if the prescription is for a schedule II opioid drRicky Start Date: 11/28/21 Status: Ordered Problem List Condition Effective Dates Status Health Status Informant Chronic bipolar disorder(Confirmed) Active History of trichomoniasis(Confirmed) Active H/O trichomonal vaginitis Active -2017(Confirmed) History of COVID-19(Confirmed) Active Migraine(Confirmed) Active Obese class I(Confirmed) Active Post traumatic stress disorder Active (PTSD)(Confirmed) Social History Social History Type Response Smoking Status Former smoker, quit more linda n 30 days ago; Other: Quit March 2021; entered on: 04/29/21 Sex Female
--- OUTSIDE RECORDS SUMMARY | 2022-09-07 17:13 | XMS_ITS | Continuity of Care Document ---
:1990 Author Organization [facility] ic Address [address] [place] [phone]- Care Team Providers Name Role Phone Melissa Conrad MD Primary Care Physician Encounter [facility] [place] Date(s): 07/11/21 - 08/10/[address] [id number] Allergies, Adverse Reactions, Alerts Substance Reaction Severity Status NKA Active Medications ferrous sulfate 325 mg oral tablet 1 tablet = 325 mg, By Mouth, 2 times a day, # 60 tablet, 3 Refills, Maintenance, 05/06/21 8:53:00 EDT, [facility] #[id number], Partial fill upon patient request if the prescription is for a schedule II opioid drug., 158, cm, 05/05/21 18:37:00 EDT... Start Date: 05/06/21 Status: OrderedProzac Capsule 20 mg, By Mouth, Daily, Maintenance, 07/24/12 15:50:33 Start Date: 07/24/12 Status: OrderedSeroquel Tablet = 50 mg, By Mouth, 2 times a day, 0 Refills, Maintenance, Tablet Start Date: 07/24/12 Status: Ordered Problem List Condition Effective Dates Status Health Status Informant Chronic bipolar disorder(Confirmed) Active History of trichomoniasis(Confirmed) Active H/O trichomonal vaginitis Active -2017(Confirmed) History of COVID-19(Confirmed) Active Migraine(Confirmed) Active Post traumatic stress disorder Active (PTSD)(Confirmed) Social History Social History Type Response Smoking Status Former smoker, quit more linda n 30 days ago; Other: Quit March 2021; entered on: 04/29/21 Sex
--- OUTSIDE RECORDS SUMMARY | 2022-09-07 17:13 | XMS_ITS | Continuity of Care Document ---
:1990 Author Organization [facility] Address [address] [place] [address]- Care Team Providers Name Role Phone Anamaria DANG, Melissa Cueto Primary Care Physician Encounter [facility] [place] Date(s): 02/01/20 - 02/02/[address] [address]- [facility] Encounter Diagnosis Bacterial vaginitis (Final) - 02/02/20 Discharge Disposition: A-D/C Home Attending Physician: Erasto Ross MD Admitting Physician: Erasto Ross MD Referring Physician: Not on Staff, Referring MD Allergies, Adverse Reactions, Alerts Substance Reaction Severity Status NKA Active Medications Keflex monohydrate 500 mg oral capsule = 500 mg, By Mouth, 4 times a day, # 20 capsule, 0 Refills, Maintenance, 08/02/19 1:38:07 EST Start Date: 08/02/19 Status: Orderedmetronidazole topical 0.75% gel with applicator 1 applicator, Vaginally, Daily at bedtime, for 5 days, # 70 Gm, 0 Refills, Acute 02/07/20 0:10:00 EDT, 02/02/20 0:10:00 EDT, Gel Start Date: 02/02/20 Stop Date: 02/07/20 Status: Orderedondansetron 4 mg oral tablet 1 tablet = 4 mg, By Mouth, Once, # 15 tablet, 0 Refills, Soft Stop, 08/02/19 1:40:41 EST Start Date: 08/02/19 Status: OrderedProzac Capsule 20 mg, By Mouth, Daily, Maintenance, 07/24/12 15:50:33 Start Date: 07/24/12 Status: OrderedSeroquel Tablet = 50 mg, By Mouth, 2 times a day, 0 Refills, Maintenance, Tablet Start Date: 07/24/12 Status: Ordered Results Orders for Microbiology Reports Name Date Urine Culture (URINE CULTURE) 02/01/20 Wet Prep 02/01/20 Microbiology Reports TEST:Urine Culture STATUS:Auth (Verified) BODY SITE: SOURCE:URINE COLLECTED DATE/TIME:02/01/20 10:40 PMUrine Culture SPECIMEN DESCRIPTION : URINE SPECIAL REQUESTS : NONE CULTURE : NO GROWTH REPORT STATUS : FINAL 02/02/2020TEST:Wet Prep STATUS:Auth (Verified) BODY SITE: SOURCE:VAGINA COLLECTED DATE/TIME:02/01/20 10:36 PMWet Prep SPECIMEN DESCRIPTION : VAGINAL SPECIMEN SPECIAL REQUESTS : NONE DIRECT EXAM : 1+ WHITE BLOOD CELLS 1+ CLUE CELLS NO YEAST OBSERVED NO TRICHOMONAS OBSERVED REPORT STATUS : FINAL 02/01/2020 Vital Signs Most recent to oldest [Reference Range]: 1 2 Oxygen Saturation [94-100 %] 100 % 100 % (02/02/20 1:12 AM) (02/01/20 10:57 PM) Pulse Rate [55-90 bpm] 75 bpm 80 bpm (02/02/20 1:12 AM) (02/01/20 10:57 PM) Blood Pressure [90-138/55-84 mm Hg] 130/68 mm Hg 121/ 67 mm Hg (02/02/20 1:12 AM) (02/01/20 10:57 PM) Respiratory Rate [16-30 br/min] 18 br/min 16 br/mi n (02/02/20 1:12 AM) (02/01/20 10:57 PM) Temperature [96.8-100.4 DegF] 98 DegF 98.4 DegF (02/02/20 1:12 AM) (02/01/20 10:57 PM) Mode of Delivery (Oxygen) Room air Room air (02/02/20 1:12 AM) (02/01/20 10:57 PM) Temperature Route Oral Oral (02/02/20 1:12 AM) (02/01/20 10:57 PM) Social History Social History Type Response Tobacco Use: 4 or less cigarettes(le ss than 1/4 pack)/day in last 30 days. Sex
--- OUTSIDE RECORDS SUMMARY | 2022-09-07 17:13 | XMS_ITS | Continuity of Care Document ---
:1990 Author Organization [facility] Address [address] [place] [address]- Care Team Providers Name Role Phone Anamaria DANG, Melissa Cueto Primary Care Physician [place] [facility] [place] Date(s): 04/05/21 - 05/05/[address] [address]- Allergies, Adverse Reactions, Alerts Substance Reaction Severity Status NKA Active Medications Augmentin 875 mg-125 mg oral tablet 1 tablet, By Mouth, Every 12 hours, for 7 days, # 14 tablet, 0 Refills, Acute 05/12/21 10:41:00 EDT,05/05/21 10:41:00 EDT, Tablet, [facility] #[id number], Partial fill upon patient request if theprescription is for a schedule II opioid drug., 1... Start Date: 05/05/21 Stop Date: 05/12/21 Status: OrderedKeflex monohydrate 500 mg oral capsule = 500 mg, By Mouth, 4 times a day, # 20 capsule, 0 Refills, Maintenance, 08/02/19 1:38:07 EST Start Date: 08/02/19 Status: Orderedondansetron 4 mg oral tablet 1 [...] Health Status Informant Chronic bipolar disorder(Confirmed) Active H/O trichomonal vaginitis Active -2018(Confirmed) Migraine(Confirmed) Active Post traumatic stress disorder Active (PTSD)(Confirmed) Social History Social History Type Response Smoking Status Former smoker, quit more linda n 30 days ago; Other: Quit March 2021; entered on: 04/29/21 Sex
--- OUTSIDE RECORDS SUMMARY | 2022-09-07 17:13 | XMS_ITS | Continuity of Care Document ---
:1990 Author Organization [facility] ic Address [address] [place] [address]- Care Team Providers Name Role Phone Melissa Conrad MD Primary Care Physician Encounter [facility] [place] Date(s): 05/05/21 - 06/04/[address] [address] Allergies, Adverse Reactions, Alerts Substance Reaction Severity Status NKA Active Medications ferrous sulfate 325 mg oral tablet 1 tablet = 325 mg, By Mouth, 2 times a day, # 60 tablet, 3 Refills, Maintenance, 05/06/21 8:53:00 EDT, [facility] #[id number], Partial fill upon patient request if the prescription is for a schedule II opioid drug., 158, cm, 05/05/21 18:37:00 EDT... Start Date: 05/06/21 Status: OrderedKeflex monohydrate 500 mg oral capsule [...]
--- OUTSIDE RECORDS SUMMARY | 2022-09-07 17:13 | XMS_ITS | Continuity of Care Document ---
:1990 Author Organization [facility] ic Address [address] [place] [address]- Care Team Providers Name Role Phone Melissa Conrad MD Primary Care Physician Encounter [facility] [place] Date(s): 05/06/21 - 06/05/[address] [address] Allergies, Adverse Reactions, Alerts Substance Reaction Severity Status NKA Active Medications ferrous sulfate 325 mg oral tablet 1 tablet = 325 mg, By Mouth, 2 times a day, # 60 tablet, 3 Refills, Maintenance, 05/06/21 8:53:00 EDT, [facility] #[id number], Partial fill upon patient request if the [...]
--- OUTSIDE RECORDS SUMMARY | 2022-09-07 17:13 | XMS_ITS | Continuity of Care Document ---
:1990 Author Organization [facility] ic Address [address] [place] [address]- Care Team Providers Name Role Phone Anamaria DANG, Melissa Cueto Primary Care Physician [place] [facility] [place] 12/26/[place] - 01/25/[address] [address] Attending Physician: Krystina Crespo Admitting Physician: Krystina Crespo Referring Physician: AdmKrystina rodney Allergies, Adverse Reactions, Alerts No Known Allergies Immunizations Given and Recorded Vaccine Date Status Refusal Reason tetanus/diphtheria/pertussis, acel(Tdap) 08/30/21 Given Medications docusate-senna 50 mg-187 mg oral tablet 1 tablet, By Mouth, Daily at bedtime, # 30 tablet, 0 Refills, Maintenance, 11/28/21 7:44:00 EDT, Tablet, [facility] #[id number], Partial fill upon patient request if the prescription is for a schedule II opioid drug., 1 tablet By Mouth Daily at b... Start Date: 11/28/21 Status: Orderedferrous sulfate 325 mg oral tablet 1 tablet = 325 mg, By Mouth, 2 times a day, # 60 tablet, 3 Refills, Maintenance, 05/06/21 8:53:00 EDT, [facility] #[id number], Partial fill upon patient request if the prescription is for a schedule II opioid drug., 158, cm, 05/05/21 18:37:00 EDT... Start Date: 05/06/21 Status: Orderedibuprofen 600 mg oral tablet 600 mg, 1, tablet, By Mouth, Every 6 hours, # 50 tablet, Refills 0, Tot. Refills 0, Maintenance, 11/28/21 7:41:00 EDT, Route to Pharmacy Electronically, [facility] #[id number], Partial fill upon patient request if the prescription is for a schedu... Start Date: 11/28/21 Status: OrderedTylenol 325 mg oral capsule 2 capsule = 650 mg, By Mouth, Every 4 hours, PRN as needed for pain, # 50 capsule, 0 Refills, Maintenance, 11/28/21 7:41:00 EDT, Capsule, [facility] #[id number], Partial fill upon patient request if the prescription is for a schedule II opioid drRicky Start Date: 11/28/21 Status: Ordered Problem List Condition Effective Dates Status Health Status Informant Chronic bipolar disorder(Confirmed) Active History of trichomoniasis(Confirmed) Active H/O trichomonal vaginitis Active -2018(Confirmed) History of COVID-19(Confirmed) Active Migraine(Confirmed) Active Obese class I(Confirmed) Active Post traumatic stress disorder Active (PTSD)(Confirmed) Social History Social History Type Response Smoking Status Former smoker, quit more linda n 30 days ago; Other: Quit March 2021; entered on: 04/29/21 Sex Female
--- OUTSIDE RECORDS SUMMARY | 2022-09-07 17:13 | XMS_ITS | Continuity of Care Document ---
:1990 Author Organization [facility] ic Address [address] [place] [address]- Care Team Providers Name Role Phone Melissa Conrad MD Primary Care Physician Encounter [facility] [place] Date(s): 09/21/21 - 10/21/[address] [address] Allergies, Adverse Reactions, Alerts No Known Allergies Immunizations Given and Recorded Vaccine Date Status Refusal Reason tetanus/diphtheria/pertussis, acel(Tdap) 08/30/21 Given Medications ferrous sulfate 325 mg oral tablet 1 tablet = 325 mg, By Mouth, 2 times a day, # 60 tablet, 3 Refills, Maintenance, 05/06/21 8:53:00 EDT, [facility] #[id number], Partial fill upon patient request if the [...]
--- OUTSIDE RECORDS SUMMARY | 2022-09-07 17:13 | XMS_ITS | Continuity of Care Document ---
:1990 Author Organization [facility] ic Address [address] [place] [address]- Care Team Providers Name Role Phone Melissa Conrad MD Primary Care Physician [place] [facility] [place](s): 06/01/21 - 07/01/[address] [address] Allergies, Adverse Reactions, Alerts Substance Reaction Severity Status NKA Active Medications ferrous sulfate 325 mg oral tablet 1 tablet = 325 mg, By Mouth, 2 times a day, # 60 tablet, 3 Refills, Maintenance, 05/06/21 8:53:00 EDT, [facility] #[id number], Partial fill upon patient request if the [...]
--- OUTSIDE RECORDS SUMMARY | 2022-09-07 17:13 | XMS_ITS | Continuity of Care Document ---
:1990 Author Organization [facility] Address [address] [place] [address]- Care Team Providers Name Role Phone Melissa Conrad MD Primary Care Physician [place] [facility] [place] - 09/27/[address] [address] Allergies, Adverse Reactions, Alerts No Known Allergies Immunizations Given and Recorded Vaccine Date Status Refusal Reason tetanus/diphtheria/pertussis, acel(Tdap) 08/30/21 Given Medications clotrimazole 1% vaginal cream with applicator 1 application, Vaginally, Daily at bedtime, for 7 days, # 45 Gm, 0 Refills, Acute 09/28/21 14:22:00 EST, 09/21/21 14:22:00 EST, Cream, [facility] #[id number], Partial fill upon patient request if the prescription is for a schedule II opioid drug.... Start Date: 09/21/21 Stop Date: 09/28/21 Status: Orderedferrous sulfate 325 mg oral tablet 1 tablet = 325 mg, By Mouth, 2 times a day, # 60 tablet, 3 Refills, Maintenance, 05/06/21 8:53:00 EDT, [facility] #[id number], Partial fill upon patient request if the [...]
--- OUTSIDE RECORDS SUMMARY | 2022-09-07 17:13 | XMS_ITS | Continuity of Care Document ---
:1990 Author Organization [facility] ic Address [address] [place] [address]- Care Team Providers Name Role Phone Melissa Conrad MD Primary Care Physician Encounter [facility] [place] Date(s): 05/05/21 - 06/04/[address] [address] Allergies, Adverse Reactions, Alerts Substance Reaction Severity Status NKA Active Medications ferrous sulfate 325 mg oral tablet 1 tablet = 325 mg, By Mouth, 2 times a day, # 60 tablet, 3 Refills, Maintenance, 05/06/21 8:53:00 EDT, [email or web address] #[id number], Partial fill upon patient request if the [...]
--- OUTSIDE RECORDS SUMMARY | 2022-09-07 17:13 | XMS_ITS | Continuity of Care Document ---
:1990 Author Organization [facility] p Address [address] [place] [address], [address] [place] [address]- Care Team Providers Name Role Phone Melissa Conrad MD Primary Care Physician Encounter [facility] [place] Date(s): 05/12/21 - 06/11/21 [facility] [address], [address] [place] [id number] Allergies, Adverse Reactions, Alerts Substance Reaction Severity Status NKA Active Medications ferrous sulfate 325 mg oral tablet 1 tablet = 325 mg, By Mouth, 2 times a day, # 60 tablet, 3 Refills, Maintenance, 05/06/21 8:53:00 EDT, [facility] #[id number], Partial fill upon patient request if the [...]
--- OUTSIDE RECORDS SUMMARY | 2022-09-07 17:14 | XMS_ITS | Continuity of Care Document ---
:1990 Author Organization [facility] ic Address [address] [place] [address]- Care Team Providers Name Role Phone Melissa Conrad MD Primary Care Physician En[place] [facility] [place] Date(s): 11/21/21 - 12/21/[address] [address] Allergies, Adverse Reactions, Alerts No Known Allergies Immunizations Given and Recorded Vaccine Date Status Refusal Reason tetanus/diphtheria/pertussis, acel(Tdap) 08/30/21 Given Medications docusate-senna 50 mg-187 mg oral tablet 1 tablet, By Mouth, Daily at bedtime, # 30 tablet, 0 Refills, Maintenance, 11/28/21 7:44:00 EDT, Tablet, [facility] #[id number], Partial fill upon patient request if the prescription is for a schedule II opioid drug., 1 tablet By Mouth Daily at b... Start Date: 11/28/21 Status: Orderedferrous sulfate 325 mg oral tablet 1 tablet = 325 mg, By Mouth, 2 times a day, # 60 tablet, 3 Refills, Maintenance, 05/06/21 8:53:00 EDT, [facility] #[id number], Partial fill upon patient request if the prescription is for a schedule II opioid drug., 158, cm, 05/05/21 18:37:00 EDT... Start Date: 05/06/21 Status: Orderedibuprofen 600 mg oral tablet 600 mg, 1, tablet, By Mouth, Every 6 hours, # 50 tablet, Refills 0, Tot. Refills 0, Maintenance, 11/28/21 7:41:00 EDT, Route to Pharmacy Electronically, [facility] #[id number], Partial fill upon patient request if the prescription is for a schedu... Start Date: 11/28/21 Status: OrderedoxyCODONE 5 mg oral tablet 5 mg, 1, tablet, By Mouth, Every 6 hours, PRN, # 10 tablet, Refills 0, Tot. Refills 0, Acute 12/29/21 0:00:00 EDT, for pain, 11/28/21 7:42:00 EDT, Route to Pharmacy Electronically, [facility][id number], Partial fill upon patient request, 158, c... Start Date: 11/28/21 Stop Date: 12/29/21 Status: OrderedTylenol 325 mg oral capsule 2 capsule = 650 mg, By Mouth, Every 4 hours, PRN as needed for pain, # 50 capsule, 0 Refills, Maintenance, 11/28/21 7:41:00 EDT, Capsule, [facility] #[id number], Partial fill upon patient request if the prescription is for a schedule II opioid drRicky Start Date: 11/28/21 Status: Ordered Problem List Condition Effective Dates Status Health Status Informant Chronic bipolar disorder(Confirmed) Active History of trichomoniasis(Confirmed) Active H/O trichomonal vaginitis Active -2018(Confirmed) History of COVID-19(Confirmed) Active Migraine(Confirmed) Active Post traumatic stress disorder Active (PTSD)(Confirmed) Severe obesity(Confirmed) Active Social History Social History Type Response Smoking Status Former smoker, quit more linda n 30 days ago; Other: Quit March 2021; entered on: 04/29/21 Sex Female
--- OUTSIDE RECORDS SUMMARY | 2022-09-07 17:14 | XMS_ITS | Continuity of Care Document ---
:1990 Author Organization [facility] Address [address] [place] [phone]- Care Team Providers Name Role Phone Melissa Conrad MD Primary Care Physician Encounter [facility] [place] Date(s): 11/24/21 - 11/28/[address] [address] Discharge Disposition: A-D/C Home Attending Physician: Adriana Gautam MD Admitting Physician: Adriana Gautam MD Referring Physician: Adriana Gautam MD Allergies, Adverse Reactions, Alerts No Known Allergies Immunizations Given and Recorded Vaccine Date Status Refusal Reason tetanus/diphtheria/pertussis, acel(Tdap) 08/30/21 Given Medications Acetaminophen Tablet 650 mg, Tablet, By Mouth, (1-3), may give 325mg per patient preference and re- dose with 325mg within4 hours, if needed. Patient should only receive a total of 650mg of Acetaminophen every 4 hours., 11/28/21 3:00:00 EDT Start Date: 11/28/21 Stop Date: 11/28/21 Status: Completeddocusate-senna 50 mg-187 mg oral tablet 1 tablet, By Mouth, Daily at bedtime, # 30 tablet, 0 Refills, Maintenance, 11/28/21 7:44:00 EDT, Tablet, [facility] #[id number], Partial fill upon patient request if the prescription is for a schedule II opioid drug., 1 tablet By Mouth Daily at b... Start Date: 11/28/21 Status: Orderedferrous sulfate 325 mg oral tablet 1 tablet = 325 mg, By Mouth, 2 times a day, # 60 tablet, 3 Refills, Maintenance, 05/06/21 8:53:00 EDT, [facility] #[id number], Partial fill upon patient request if the prescription is for a schedule II opioid drug., 158, cm, 05/05/21 18:37:00 EDT... Start Date: 05/06/21 Status: Orderedibuprofen 600 mg oral tablet 600 mg, 1, tablet, By Mouth, Every 6 hours, # 50 tablet, Refills 0, Tot. Refills 0, Maintenance, 11/28/21 7:41:00 EDT, Route to Pharmacy Electronically, [facility] #[id number], Partial fill upon patient request if the prescription is for a schedu... Start Date: 11/28/21 Status: OrderedIbuprofen Tablet 800 mg, Tablet, By Mouth, (4-6), may give 400mg per patient preference and re- dose with 400mg within8 hours, if needed. Patient should only receive a total of 800mg of Ibuprofen every 8 hours., 11/28/21 2:03:00 EDT Start Date: 11/28/21 Stop Date: 11/28/21 Status: CompletedoxyCODONE 5 mg oral tablet 5 mg, 1, tablet, By Mouth, Every 6 hours, PRN, # 10 tablet, Refills 0, Tot. Refills 0, Acute 12/29/21 0:00:00 EDT, for pain, 11/28/21 7:42:00 EDT, Route to Pharmacy Electronically, [facility]#[id number], Partial fill upon patient request, 158, c... Start Date: 11/28/21 Stop Date: 12/29/21 Status: OrderedTylenol 325 mg oral capsule 2 capsule = 650 mg, By Mouth, Every 4 hours, PRN as needed for pain, # 50 capsule, 0 Refills, Maintenance, 11/28/21 7:41:00 EDT, Capsule, [facility] #[id number], Partial fill upon patient request if the prescription is for a schedule II opioid drRicky Start Date: 11/28/21 Status: Ordered Problem List Condition Effective Dates Status Health Status Informant Chronic bipolar disorder(Confirmed) Active History of trichomoniasis(Confirmed) Active H/O trichomonal vaginitis Active -2018(Confirmed) History of COVID-19(Confirmed) Active Migraine(Confirmed) Active Post traumatic stress disorder Active (PTSD)(Confirmed) Severe obesity(Confirmed) Active Procedures Procedure Date Related Diagnosis Body Site Status delivery only; 11/26/21 Comp leted Vital Signs Most recent to oldest 1 2 3 [Reference Range]: Height 158 cm 158 cm 158 cm (11/28/21 8:03 AM) (11/28/21 7:52 AM) (11/28/21 12: 00 AM) Weight 100 kg 100 kg 100 kg (11/25/21 8:21 AM) (11/25/21 8:21 AM) (11/24/21 1:2 2 PM) Oxygen Saturation [94-100 %] 98 % 100 % 98 % (11/28/21 7:52 AM) (11/28/21 12:00 AM) (11/27/21 8: 00 AM) Pulse Rate [55-90 bpm] 85 bpm 107 bpm 96 bpm (11/28/21 7:52 AM) *H* *H* (11/28/21 12:00 AM) (11/27/21 8:00 AM) Body Mass Index [18.5-24.99] 40.06 *>HHI* (11/24/21 1:22 PM) Blood Pressure [90-138/55-84 119/67 mm Hg 117/78 mm Hg 114 /56 mm Hg mm Hg] (11/28/21 7:52 AM) (11/28/21 12:00 AM) (11/27/21 8: 00 AM) Respiratory Rate [16-30 18 br/min 20 br/min 20 br/mi n br/min] (11/28/21 7:52 AM) (11/28/21 4:43 AM) (11/28/21 4:4 3 AM) Temperature [96.8-100.4 97.4 DegF 98.1 DegF 98.1 Deg F DegF] (11/28/21 7:52 AM) (11/28/21 12:00 AM) (11/27/21 8: 00 AM) Mode of Delivery (Oxygen) Room air Room air Room a ir (11/28/21 12:00 AM) (11/27/21 8:00 AM) (11/26/21 7: 15 PM) Blood pressure sites Arm, right Arm, right Arm, left (11/28/21 12:00 AM) (11/27/21 8:00 AM) (11/27/21 1: 27 AM) Temperature Route Oral Oral Oral (11/28/21 7:52 AM) (11/28/21 12:00 AM) (11/27/21 8: 00 AM) Dry Weight 100 kg 93.6 kg (11/24/21 1:22 PM) (11/24/21 10:44 AM) Social History Social History Type Response Smoking Status Former smoker, quit more linda n 30 days ago; Other: Quit March 2021; entered on: 04/29/21 Sex Female
--- OUTSIDE RECORDS SUMMARY | 2022-09-07 17:14 | XMS_ITS | Continuity of Care Document ---
:1990 Author Organization [facility] Address [address] [place] [phone]- Care Team Providers Name Role Phone Anamaria DANG, Melissa Cueto Primary Care Physician Encounter [facility] [place] Date(s): 08/26/21 - 08/26/[address] [id number] Discharge Disposition: A-D/C Home Attending Physician: Aleksandr Rasmussen MD Admitting Physician: Aleksandr Rasmussen MD Referring Physician: Aleksandr Rasmussen MD Allergies, Adverse Reactions, Alerts Substance Reaction Severity Status NKA Active Medications ferrous sulfate 325 mg oral tablet 1 tablet = 325 mg, By Mouth, 2 times a day, # 60 tablet, 3 Refills, Maintenance, 05/06/21 8:53:00 EDT, [facility][id number], Partial fill upon patient request if the prescription is for a schedule II opioid drug., 158, cm, 05/05/21 18:37:00 EDT... Start Date: 05/06/21 Status: Orderedmetronidazole topical 0.75% gel with applicator 1 applicator, Vaginally, Daily at bedtime, for 5 days, # 70 Gm, 0 Refills, Acute 08/31/21 22:57:00 EST, 08/26/21 22:57:00 EST, Gel, [facility] #[id number], Partial fill upon patient request if theprescription is for a schedule II opioid drug., 1... Start Date: 08/26/21 Stop Date: 08/31/21 Status: OrderedProzac Capsule 20 mg, By Mouth, Daily, Maintenance, 07/24/12 15:50:33 Start Date: 07/24/12 Status: OrderedSeroquel Tablet = 50 mg, By Mouth, 2 times a day, 0 Refills, Maintenance, Tablet Start Date: 07/24/12 Status: OrderedTylenol 325 mg oral tablet 975 mg, Tablet, By Mouth, Once, PRN for Pain , Moderate, Routine, 08/26/21 21:21:00 EST Start Date: 08/26/21 Stop Date: 08/26/21 Status: Completed Problem List Condition Effective Dates Status Health Status Informant Chronic bipolar disorder(Confirmed) Active History of trichomoniasis(Confirmed) Active H/O trichomonal vaginitis Active -2018(Confirmed) History of COVID-19(Confirmed) Active Migraine(Confirmed) Active Post traumatic stress disorder Active (PTSD)(Confirmed) Vital Signs Most recent to oldest [Reference Range]: 1 2 Weight 84 kg (08/26/21 4:04 PM) Oxygen Saturation [94-100 %] 100 % (08/26/21 4:04 PM) Pulse Rate [55-90 bpm] 100 bpm *H* (08/26/21 4:04 PM) Blood Pressure [90-138/55-84 mm Hg] 125/75 mm Hg (08/26/21 4:04 PM) Respiratory Rate [16-30 br/min] 18 br/min 18 br/mi n (08/26/21 9:52 PM) (08/26/21 4:04 PM) Temperature [96.8-100.4 DegF] 98.4 DegF (08/26/21 4:04 PM) Blood pressure sites Arm, right 1 (08/26/21 4:04 PM) Temperature Route Oral (08/26/21 4:04 PM) Dry Weight 84 kg (08/26/21 4:04 PM) 1Result Comment: right upper arm measured 32.5cm Social History Social History Type Response Smoking Status Former smoker, quit more linda n 30 days ago; Other: Quit March 2021; entered on: 04/29/21 Sex
--- OUTSIDE RECORDS SUMMARY | 2022-09-07 17:14 | XMS_ITS | Continuity of Care Document ---
:1990 Author Organization [facility] ic Address [address] [place] [id number]- Care Team Providers Name Role Phone Anamaria DANG, Melsisa Cueto Primary Care Physician Encounter [place] Date(s): 12/22/21 - 01/25/[address] [address] Attending Physician: Not on Staff, Attending MD Allergies, Adverse Reactions, Alerts No Known Allergies Immunizations Given and Recorded Vaccine Date Status Refusal Reason tetanus/diphtheria/pertussis, acel(Tdap) 08/30/21 Given Medications docusate-senna 50 mg-187 mg oral tablet 1 tablet, By Mouth, Daily at bedtime, # 30 tablet, 0 Refills, Maintenance, 11/28/21 7:44:00 EDT, Tablet, [facility] #[id number], Partial fill upon patient request if the prescription is for a schedule II opioid drug., 1 tablet By Mouth Daily at b... Start Date: 11/28/21 Status: Orderedferrous sulfate 325 mg oral tablet 1 tablet = 325 mg, By Mouth, 2 times a day, # 60 tablet, 3 Refills, Maintenance, 05/06/21 8:53:00 EDT, [facility] #[id number], Partial fill upon patient request if the prescription is for a schedule II opioid drug., 158, cm, 05/05/21 18:37:00 EDT... Start Date: 05/06/21 Status: Orderedibuprofen 600 mg oral tablet 600 mg, 1, tablet, By Mouth, Every 6 hours, # 50 tablet, Refills 0, Tot. Refills 0, Maintenance, 11/28/21 7:41:00 EDT, Route to Pharmacy Electronically, [facility] #[id number], Partial fill upon patient request if the prescription is for a schedu... Start Date: 11/28/21 Status: OrderedTylenol 325 mg oral capsule 2 capsule = 650 mg, By Mouth, Every 4 hours, PRN as needed for pain, # 50 capsule, 0 Refills, Maintenance, 11/28/21 7:41:00 EDT, Capsule, [facility] #[id number], Partial fill upon patient request if the [...]
--- OUTSIDE RECORDS SUMMARY | 2022-09-07 17:14 | XMS_ITS | Continuity of Care Document ---
:1990 Author Organization [facility] ic Address [address] [place] [address]- Care Team Providers Name Role Phone Melissa Conrad MD Primary Care Physician En[place] [facility] [place] Date(s): 06/14/21 - 07/14/[address] [address] Allergies, Adverse Reactions, Alerts Substance Reaction Severity Status NKA Active Medications ferrous sulfate 325 mg oral tablet 1 tablet = 325 mg, By Mouth, 2 times a day, # 60 tablet, 3 Refills, Maintenance, 05/06/21 8:53:00 EDT, [facility] #[id number], Partial fill upon patient request if the [...]
--- OUTSIDE RECORDS SUMMARY | 2022-09-07 17:14 | XMS_ITS | Continuity of Care Document ---
:1990 Author Organization [facility] ic Address [address] [place] [address]- Care Team Providers Name Role Phone Melissa Conrad MD Primary Care Physician [id number] Date(s): 05/05/21 - 08/05/[address] [address] Attending Physician: Iris Curran CNM Admitting Physician: Iris Curran CNM Allergies, Adverse Reactions, Alerts Substance Reaction Severity Status NKA Active Medications ferrous sulfate 325 mg oral tablet 1 tablet = 325 mg, By Mouth, 2 times a day, # 60 tablet, 3 Refills, Maintenance, 05/06/21 8:53:00 EDT, [id number], Partial fill upon patient request if the [...]
--- OUTSIDE RECORDS SUMMARY | 2022-09-07 17:14 | XMS_ITS | Continuity of Care Document ---
:1990 Author Organization [facility] ic Address [address] [place] [address]- Care Team Providers Name Role Phone Melissa Conrad MD Primary Care Physician [place] [facility] [place] 09/13/[place] - 10/15/[address] [address] Attending Physician: Not on Staff, Attending MD Allergies, Adverse Reactions, Alerts No Known Allergies Immunizations Given and Recorded Vaccine Date Status Refusal Reason tetanus/diphtheria/pertussis, acel(Tdap) 08/30/21 Given Medications ferrous sulfate 325 mg oral tablet 1 tablet = 325 mg, By Mouth, 2 times a day, # 60 tablet, 3 Refills, Maintenance, 05/06/21 8:53:00 EDT, [facility] #[id number], Partial fill upon patient request if the [...]
--- OUTSIDE RECORDS SUMMARY | 2022-09-07 17:14 | XMS_ITS | Continuity of Care Document ---
:1990 Author Organization [facility] ic Address [address] [place] [address]- Care Team Providers Name Role Phone Melissa Conrad MD Primary Care Physician Encounter [facility] [place] Date(s): 06/06/21 - 07/06/[address] [id number] Allergies, Adverse Reactions, Alerts Substance Reaction Severity Status NKA Active Medications ferrous sulfate 325 mg oral tablet 1 tablet = 325 mg, By Mouth, 2 times a day, # 60 tablet, 3 Refills, Maintenance, 05/06/21 8:53:00 EDT, [facility] #[id number], Partial fill upon patient request if the [...]
--- OUTSIDE RECORDS SUMMARY | 2022-09-07 17:14 | XMS_ITS | Continuity of Care Document ---
:1990 Author Organization [facility] ic Address [address] [place] [phone]- Care Team Providers Name Role Phone Melissa Conrad MD Primary Care Physician Encounter [facility] [place] Date(s): 09/15/21 - 10/15/[address] [address] Allergies, Adverse Reactions, Alerts No Known Allergies Immunizations Given and Recorded Vaccine Date Status Refusal Reason tetanus/diphtheria/pertussis, acel(Tdap) 08/30/21 Given Medications ferrous sulfate 325 mg oral tablet 1 tablet = 325 mg, By Mouth, 2 times a day, # 60 tablet, 3 Refills, Maintenance, 05/06/21 8:53:00 EDT, [facility] #[id number], Partial fill upon patient request if the [...]
== END 2022-09-07 17:19 | disposition left against medical advice (07) ==
PROVIDERS: Emergency Provider Emergency Medicine; PCP Internal Medicine
DX: Z04.1 Encounter for examination and observation following transport accident (principal); M54.2 Cervicalgia

== ENCOUNTER 2023-01-10 13:25 | Outpatient (REF) | payer OTHER, SELFPAY ==
[2023-01-10 13:36] LABS: MANUAL DIFF FLAG NO
[2023-01-10 14:27] LABS: Alanine Aminotransferase 66 U/L (0-31); Alkaline Phosphatase 291 U/L (39-117); Anion Gap 12 (12-20); Aspartate Amino Transferase 46 U/L (5-31); Bilirubin Total 0.5 mg/dL (0.0-1.0); Blood Urea Nitrogen 9 mg/dL (9-16); Calcium 9.2 mg/dL (8.4-10.2); Carbon Dioxide 25 mmol/L (22-29); Chloride 107 mmol/L (96-108); Cholesterol 209 mg/dL; Estimated Glomerular Filt Rate > 60; Glucose Random 69 mg/dL (60-115); HDL Cholesterol 56 mg/dL; LDL Cholesterol Calculated 138 mg/dl; Potassium 4.5 mmol/L (3.3-5.1); Sodium 139 mmol/L (135-145); Total Protein 7.4 g/dL (6.5-8.0); Triglycerides 76 mg/dL
[2023-01-10 14:28] LABS: Basophils Absolute Auto 0.1 X10*3/uL (0.0-0.2); Basophils Percent Auto 0.9 % (0-2); Eosinophils Absolute Auto 0.1 X10*3/uL (0.0-0.4); Eosinophils Percent Auto 0.8 % (0-4); Hematocrit 38.3 % (37.0-47.0); Hemoglobin 11.8 g/dl (12.0-16.0); Lymphocytes Absolute Auto 2.4 X10*3/uL (1.2-4.9); Lymphocytes Percent Auto 37.7 % (20-40); Mean Corpuscular HGB Conc 30.8 g/dl (31.0-35.0); Mean Corpuscular Hemoglobin 20.3 pg (27.0-33.0); Mean Platelet Volume 10.9 fL (9.4-12.3); Monocytes Absolute Auto 0.7 X10*3/uL (0.1-1.2); Monocytes Percent Auto 11.3 % (2-11); Neutrophils Absolute Auto 3.1 x10*3/uL (2.0-8.3); Neutrophils Percent Auto 49.3 % (45-73); Platelet Count 457 X10*3/uL (160-400); White Blood Count 6.4 X10*3/uL (4.8-10.8)
== END 2023-01-10 13:26 | disposition home or self-care (01) ==
LOC: HO.LAB 13:25
PROVIDERS: PCP Internal Medicine; Visit Provider Internal Medicine
DX: Z00.00 Encounter for general adult medical examination without abnormal findings (principal); B00.1 Herpesviral vesicular dermatitis; F31.9 Bipolar disorder, unspecified; F17.211 Nicotine dependence, cigarettes, in remission
CPT/HCPCS: 36415; 80053; 80061; 85025

== ENCOUNTER 2023-04-23 13:31 | Emergency (ER) | payer OTHER, SELFPAY ==
[2023-04-23 14:20] VITALS: BP 142/84; PULSE 88; RESP 18; TEMP 36.8; O2SAT 99; BMI 29.3
--- NOTE | 2023-04-23 14:21 | ED_ITS ---
HPI - Skin/Abscess/Foreign Bdy General Chief complaint: Skin/Abscess/Foreign Body Stated complaint: whole body rash quest allergic reaction ? Time Seen by Provider: 04/23/23 14:26 Source: patient, RN notes reviewed and old records reviewed Mode of arrival: ambulatory History of Present Illness HPI narrative: 32-year-old female with past medical history of bipolar, insomnia, PTSD, presenting to the ED complaining of diffuse pruritic rash noted to body last night. Denies no new exposures, soaps, lotions, detergents, medications, known tick or insect bites, others with similar symptoms, SOB, throat closing sensation, wheezing MD complaint: rash Related Data Previous Rx's Medication Instructions Recorded fluticasone propionate 50 1 spray intranasal DAILY #16 grams 03/16/21 mcg/actuation nasal spray,suspension (Flonase Allergy Relief) vitamin with calcium 1 tab PO DAILY #30 tabs 03/24/21 no.72-iron 27 mg-folic acid 1 mg tablet ( Vitamins Plus Low Iron) clotrimazole 2 % vaginal cream 1 appful vaginal BEDTIME 3 days 05/12/21 (Clotrimazole 3 Day) metronidazole 500 mg tablet 500 mg PO BID 7 days #14 tabs 05/12/21 (Flagyl) cetirizine 10 mg capsule (Zyrtec) 10 mg PO DAILY PRN allergy 04/23/23 symptoms #14 caps diphenhydramine HCl 25 mg capsule 25 mg PO TID PRN allergic reaction 04/23/23 (Benadryl) #14 caps prednisone 20 mg tablet 40 mg PO DAILY 5 days #10 tabs 04/23/23 Allergies Allergy/AdvReac Type Severity Reaction Status Date / Time No Known Allergies Allergy Verified 05/12/21 12:35 Review of Systems Review of Systems: Constitutional: No Fever, No Chills ENT/Mouth: No Ear Pain, No Nasal Congestion, No sore throat, No Rhinorrhea, No Swallowing Difficulty Cardiovascular: No Chest Pain, No SOB Respiratory: No Cough, No Sputum, No Wheezing Gastrointestinal: No Nausea, No Vomiting, No Diarrhea, No Constipation, No Abdominal pain Musculoskeletal: No joint pain, No Myalgias, No Joint Swelling Skin: No Skin Lesions, +rash Neuro: No Weakness, No Numbness, No Paresthesias Yes all other systems are reviewed and are negative Constitutional: Constitutional: Reports as per HPI [facility] Past Medical History Attestation statement: The following information was validated with the patient. Source: old records reviewed Medical History Bipolar 1 disorder Insomnia PTSD (post-traumatic stress disorder) Surgical History No history of previous surgery Social History Social History Alcohol intake: never Patient Tobacco Use Status: Former Tobacco user Cigarettes Per Day: 3 Gender identity: Female Physical Exam Vital Signs: Vital Signs: Last Vital Signs Temp 98.3 F 04/23/23 14:20 Pulse 88 04/23/23 14:20 Resp 18 04/23/23 14:20 BP 142/84 H 04/23/23 14:20 Pulse Ox 99 04/23/23 14:20 O2 Del Method Room Air 04/23/23 14:20 BMI result Body Mass Index 29.3 Const: General: cooperative, healthy appearing, no acute distress, alert and awake Orientation/consciousness: patient oriented x3 Limitations: no limitations HEENT: Head: Yes normal to inspection and Yes atraumatic Ears: hearing grossly normal bilaterally General nose exam: Normal external nose present Face and sinus: Yes normal facial exam Throat: Yes posterior oropharynx normal, Yes uvula midline, No uvula laterally displaced and No uvular edema Eyes: General: appearance normal, both eyes and all related structures EOM: EOMs intact bilaterally Neck: Neck: Yes normal visual inspection and Yes no meningeal signs Resp: Effort & Inspection: normal respiratory effort, no respiratory distress and no stridor Auscultation: clear to auscultation bilaterally and no wheezes Cardio: Rate: regular rate Heart sounds: S1 normal heart sound present and S2 normal heart sound present GI: Inspection: Yes normal to inspection Palpation (GI): Soft to palpation, nontender, no guarding and not rigid Skin: Other: + diffuse scattered erythematous hives noted to back, bilateral upper and lower extremities. No vesicles/ulcerations, no palm/sole or MM involvement Wounds: no wounds Neuro: General: patient oriented x3, tone normal and no meningeal signs Cranial nerves: Yes CN's II-XII intact bilaterally Gait exam (Neuro): Normal gait present Extrem: General: Yes normal to inspection Medical Decision Making Medical Decision Making MDM Narrative: 32-year-old female with past medical history of bipolar, insomnia, PTSD, presenting to the ED complaining of diffuse pruritic rash noted to body last night. On exam vitals stable, NAD nontoxic appearing, physical exam as above. No palm/sole or mucous membrane involvement. Concern for allergic reaction vs dermatitis. 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 They verbalized understanding and feel safe for discharge at this time. Differential Diagnosis Differential Diagnoses: The differential diagnosis associated with the presentation includes As above Tests considered The following testing was considered but not selected: As above Prescription Management I considered prescription management with: Other Discharge Plan Discharge Clinical Impression: Rash Patient Disposition: Home, Self-Care Instructions: Acute Rash (ED) Additional Instructions: Take Benadryl and Zyrtec at home. Benadryl will make you drowsy prednisone is a steroid to help with allergic reaction symptoms Please follow-up with an director of graduate medical education If symptoms persist or worsen you develop any difficulty breathing, shortness of breath, throat closing sensation return to the ED Prescriptions: New diphenhydramine HCl [Benadryl] 25 mg capsule 25 mg PO TID PRN (Reason: allergic reaction) Qty: 14 0RF Zyrtec 10 mg capsule 10 mg PO DAILY PRN (Reason: allergy symptoms) Qty: 14 0RF prednisone 20 mg tablet 40 mg PO DAILY 5 Days Qty: 10 0RF No Action fluticasone propionate [Flonase Allergy Relief] 50 mcg/actuation spray,suspension 1 spray intranasal DAILY Qty: 16 0RF Rx Instructions: administer into each nostril metronidazole [Flagyl] 500 mg tablet 500 mg PO BID 7 Days Qty: 14 0RF Clotrimazole 3 Day 2 % cream 1 appful vaginal BEDTIME 3 Days 0RF Vitamin Plus Low Iron 27 mg iron- 1 mg tablet 1 tab PO DAILY Qty: 30 11RF Referrals: Shiva Collins MD [Physician] - Faisal Bush DO [Physician] - Briana Dawson MD [Physician] - Ton Tyson MD [Physician] - Interventions: ED Discharge Assessment Last Done: 04/23/23 14:25
== END 2023-04-23 14:30 | disposition home or self-care (01) ==
PROVIDERS: Emergency Provider Emergency Medicine; PCP Internal Medicine
DX: R21 Rash and other nonspecific skin eruption (principal)
CPT/HCPCS: 99282; 99283

== ENCOUNTER 2024-01-09 16:06 | Outpatient (REF) | payer OTHER, SELFPAY ==
[2024-01-09 18:01] LABS: Alanine Aminotransferase 71 U/L (0-31); Albumin Level 4.2 g/dL (3.5-5.0); Alkaline Phosphatase 236 U/L (39-117); Anion Gap 13 (12-20); Aspartate Amino Transferase 46 U/L (5-31); Bilirubin Total 0.2 mg/dL (0.0-1.0); Blood Urea Nitrogen 8 mg/dL (9-16); Calcium 9.3 mg/dL (8.4-10.2); Carbon Dioxide 24 mmol/L (22-29); Chloride 106 mmol/L (96-108); Estimated Glomerular Filt Rate > 60; Glucose Random 86 mg/dL (60-115); Potassium 4.3 mmol/L (3.3-5.1); Sodium 139 mmol/L (135-145); Total Protein 8.1 g/dL (6.5-8.0)
[2024-01-09 18:19] LABS: TSH reflex Free T4 0.91 uIU/mL (0.32-4.0)
[2024-01-10 19:13] LABS: Rubella IgG Antibody 1.58 Index
[2024-01-12 08:44] LABS: TS Negative Control Passed; TS Panel A 0; TS Panel B 1; TS Positive Control Passed; TSpotTB Negative (Negative)
== END 2024-01-09 16:07 | disposition home or self-care (01) ==
LOC: HO.LAB 16:06
PROVIDERS: PCP Internal Medicine; Visit Provider Internal Medicine
DX: Z00.00 Encounter for general adult medical examination without abnormal findings (principal); E05.90 Thyrotoxicosis, unspecified without thyrotoxic crisis or storm; R74.01 Elevation of levels of liver transaminase levels; Z11.1 Encounter for screening for respiratory tuberculosis; Z72.0 Tobacco use
CPT/HCPCS: 36415; 80053; 84443; 86481; 86735; 86762; 86765; 86787

== ENCOUNTER 2024-01-16 13:42 | Outpatient (REF) | payer OTHER, SELFPAY ==
[2024-01-17 04:32] LABS: HBS Num1 1.31 mIU/mL (0-7.99); ~Hepatitis B Surface Antibody NONREACTIVE (Nonreactive)
== END 2024-01-16 13:43 | disposition home or self-care (01) ==
LOC: HO.LAB 13:42
PROVIDERS: PCP Internal Medicine; Visit Provider Internal Medicine
DX: Z00.00 Encounter for general adult medical examination without abnormal findings (principal); E05.90 Thyrotoxicosis, unspecified without thyrotoxic crisis or storm; R74.01 Elevation of levels of liver transaminase levels; Z11.1 Encounter for screening for respiratory tuberculosis; Z72.0 Tobacco use
CPT/HCPCS: 36415; 86706

== ENCOUNTER 2024-04-07 11:25 | Outpatient (REF) | payer OTHER, SELFPAY ==
[2024-04-07 13:07] LABS: Alanine Aminotransferase 79 U/L (0-31); Albumin Level 3.9 g/dL (3.5-5.0); Alkaline Phosphatase 260 U/L (39-117); Anion Gap 11 (12-20); Aspartate Amino Transferase 37 U/L (5-31); Bilirubin Total 0.3 mg/dL (0.0-1.0); Blood Urea Nitrogen 9 mg/dL (9-16); Calcium 9.8 mg/dL (8.4-10.2); Carbon Dioxide 27 mmol/L (22-29); Chloride 106 mmol/L (96-108); Estimated Glomerular Filt Rate > 60; Glucose Random 85 mg/dL (60-115); Potassium 4.1 mmol/L (3.3-5.1); Sodium 140 mmol/L (135-145); Total Protein 7.6 g/dL (6.5-8.0)
[2024-04-08 12:04] LABS: Hepatitis B Viral DNA Qn - cp NOT DETECTED Log IU/mL (NOT DETECTED); Hepatitis B Viral DNA Qn-IU/mL NOT DETECTED (NOT DETECTED)
[2024-04-09 05:28] LABS: Rubella IgG Antibody 1.45 Index; Varicella IgG Antibody >4000.00 index
[2024-04-10 02:29] LABS: TS Negative Control Passed; TS Panel A 1; TS Panel B 0; TS Positive Control Passed; TSpotTB Negative (Negative)
== END 2024-04-07 11:26 | disposition home or self-care (01) ==
LOC: HO.LAB 11:25
PROVIDERS: PCP Internal Medicine; Visit Provider Internal Medicine
DX: Z00.00 Encounter for general adult medical examination without abnormal findings (principal); R74.01 Elevation of levels of liver transaminase levels; E05.90 Thyrotoxicosis, unspecified without thyrotoxic crisis or storm; Z72.0 Tobacco use; Z11.1 Encounter for screening for respiratory tuberculosis
CPT/HCPCS: 36415; 80053; 84443; 86481; 86735; 86762; 86765; 86787; 87517

== ENCOUNTER 2024-12-02 10:59 | Emergency (ER) | payer OTHER, SELFPAY ==
--- NOTE | ~2024-12-02 | US_ITS ---
EXAMINATION: US LESS THAN 14 WEEKS WITH TRANSVAGINAL HISTORY: pain, preg, UNK LMP COMPARISON: There are no prior studies for comparison. FINDINGS: Transabdominal and endovaginal pelvic ultrasound was performed. The uterus measures 8.5 x 5.1 x 5.6 cm. Two intrauterine sacs are identified. The mean sac diameter of both sacs is 0.7 cm, corresponding to an estimated gestational age of 5 weeks and 2 days. One of the sacs demonstrates a yolk sac. No pole is seen in either sac. The right ovary measures 2.4 x 2.8 x 1.5 cm and is unremarkable. The left ovary measures 3.4 x 3.3 x 3.0 cm and demonstrates 2 hypoechoic foci measuring 1.8 x 1.5 x 1.5 cm and 1.2 x 1.4 x 1.6 cm, one of which likely represents the corpus luteum. No significant free fluid is seen. US/US OB pelvic and transvaginal IMPRESSION: Findings suggestive of twin gestations, with an estimated gestational age of 5 weeks and 2 days. A yolk sac is seen in one of the sacs. No poles are identified at this time. Follow-up is recommended. Electronically signed by: Roger Taylor MD 12/02/2024 01:15 PM EDT
--- NOTE | ~2024-12-02 | US_ITS ---
EXAMINATION: US LESS THAN 14 WEEKS WITH TRANSVAGINAL HISTORY: pain, preg, UNK LMP COMPARISON: There are no prior studies for comparison. FINDINGS: Transabdominal and endovaginal pelvic ultrasound was performed. The uterus measures 8.5 x 5.1 x 5.6 cm. Two intrauterine sacs are identified. The mean sac diameter of both sacs is 0.7 cm, corresponding to an estimated gestational age of 5 weeks and 2 days. One of the sacs demonstrates a yolk sac. No pole is seen in either sac. The right ovary measures 2.4 x 2.8 x 1.5 cm and is unremarkable. The left ovary measures 3.4 x 3.3 x 3.0 cm and demonstrates 2 hypoechoic foci measuring 1.8 x 1.5 x 1.5 cm and 1.2 x 1.4 x 1.6 cm, one of which likely represents the corpus luteum. No significant free fluid is seen. US/US OB <= 14 wk fetus add gest IMPRESSION: Findings suggestive of twin gestations, with an estimated gestational age of 5 weeks and 2 days. A yolk sac is seen in one of the sacs. No poles are identified at this time. Follow-up is recommended. Electronically signed by: Roger Taylor MD 12/02/2024 01:15 PM EDT
[2024-12-02 11:40] VITALS: BP 121/36; PULSE 86; RESP 18; TEMP 36.8; O2SAT 100; BMI 31.1
--- NOTE | 2024-12-02 12:02 | ED_ITS ---
HPI - General Adult General Chief complaint: Abdominal Pain Stated complaint: Abd & back pain, pt is Time Seen by Provider: 12/02/24 15:36 Source: patient Limitations: no limitations History of Present Illness ED Provider: Rianna Johnson PA-C HPI narrative: 34-year-old female who presents with back pain and lower abdominal pain with diarrhea. She has had symptoms for 3 days. No vaginal discharge or bleeding. Unknown last menstrual cycle, she had an irregular period in October, she took home test she is . She has not started care. In regard to the back pain in his intermittent across mid back, nonradiating. In regard to the abdominal pain it was generalized, unable to describe, it was minimal. She has diarrhea 1 to 2 times a day. No recent hospitalization, travel or use of antibiotics. No sick contacts with same symptoms. Denies nausea vomiting or fever. Related Data Previous Rx's ?Medication ?Instructions ?Recorded fluticasone propionate 50 1 spray intranasal DAILY #16 grams 03/16/21 mcg/actuation nasal spray,suspension (Flonase Allergy Relief) vitamin with calcium 1 tab PO DAILY #30 tabs 03/24/21 no.72-iron 27 mg-folic acid 1 mg tablet ( Vitamins Plus Low Iron) clotrimazole 2 % vaginal cream 1 appful vaginal BEDTIME 3 days 05/12/21 (Clotrimazole 3 Day) metronidazole 500 mg tablet 500 mg PO BID 7 days #14 tabs 05/12/21 (Flagyl) cetirizine 10 mg capsule (Zyrtec) 10 mg PO DAILY PRN allergy 04/23/23 symptoms #14 caps diphenhydramine HCl 25 mg capsule 25 mg PO TID PRN allergic reaction 04/23/23 (Benadryl) #14 caps prednisone 20 mg tablet 40 mg (2 x 20 mg) PO DAILY 5 days 04/23/23 #10 tabs vit no.95-ferrous 1 tab PO DAILY #30 tabs 12/02/24 fumarate 28 mg-folic acid 800 mcg tablet () Allergies Allergy/AdvReac Type Severity Reaction Status Date / Time No Known Allergies Allergy Verified 12/02/24 11:43 Review of Systems 2 Review of Systems: Yes all other systems are reviewed and are negative Constitutional: Constitutional: Denies fatigue and Denies fever(s) Cardiovascular: Cardiovascular: Denies chest pain and Denies dyspnea Respiratory: Respiratory: Denies cough and Denies dyspnea Gastrointestinal: Gastrointestinal: Reports abdominal pain, Reports diarrhea, Denies nausea and Denies vomiting Genitourinary: Genitourinary: Denies dysuria and Denies vaginal discharge Musculoskeletal: Musculoskeletal: Reports back pain Endocrine: Endocrine: Denies fatigue [facility] Past Medical History Attestation statement: The following information was validated with the patient. Medical History Bipolar 1 disorder Insomnia PTSD (post-traumatic stress disorder) Surgical History No history of previous surgery Social History Social History Alcohol intake: never Patient Tobacco Use Status: Former Tobacco user Cigarettes Per Day: 3 Advance Directives: No Advance Directives Information Provided: No Gender identity: Female Physical Exam ED Vital Signs: Vital Signs - 24 hr 12/02/24 11:40 12/02/24 15:33 12/02/24 15:50 Temperature 98.3 F 98.1 F 98.1 F Pulse Rate 86 100 100 Respiratory Rate 18 16 16 Blood Pressure 121/36 L 141/81 H 141/81 H Pulse Oximetry 100 100 100 Oxygen Delivery Method Room Air Room Air Room Air BMI result Body Mass Index 31.1 Const Other: Alert well-appearing Orientation/consciousness: patient oriented x3 Resp Effort & Inspection: normal respiratory effort Cardio Other: Normal peripheral perfusion GI Other: Abdomen is soft, nontender nondistended Back/Spine/Pelvis Other: No CVA tenderness Skin Other: Warm dry no rash Neuro General: patient oriented x3, gait normal, no focal motor deficits and CN's II- XI intact bilaterally Psych Other: Cooperative Course Course Course Narrative: This is a rapid medical exam performed by Rianna Johnson PA-C. Patient is a 34-year-old female who presents with back pain and lower abdominal pain with diarrhea. She has had symptoms for 3 days. No vaginal discharge or bleeding. Unknown last menstrual cycle, she had an irregular period in October, she took home test she is . She has not started care. on exam her abdomen is soft, she has no CVA tenderness. I performed bedside informal ultrasound, I believe I see IUP with 2 gestational sacs, sending her for a formal. Also screening basic labs and a urinalysis. Patient was stable and can return to the waiting room pending her full medical assessment. Medical Decision Making Medical Decision Making MDM Narrative: 34-year-old female who presents with back pain and lower abdominal pain with diarrhea. She has had symptoms for 3 days. No vaginal discharge or bleeding. Unknown last menstrual cycle, she had an irregular period in October, she took home test she is . She has not started care. In regard to the back pain in his intermittent across mid back, nonradiating. In regard to the abdominal pain it was generalized, unable to describe, it was minimal. She has diarrhea 1 to 2 times a day. No recent hospitalization, travel or use of antibiotics. No sick contacts with same symptoms. Denies nausea vomiting or fever. Problem: Early History: Per patient I have considered the following differential diagnoses: Acute intra-abdominal pathology, C diff, traveler's diarrhea, viral gastroenteritis, UTI, pyelonephritis, renal colic, ectopic. Plan: In regard to the we will be ordering a beta quant, performed bedside ultrasound, I see 2 gestational sacs, twins!! We will obtain a formal ultrasound. We will be screening basic labs and a viral panel urinalysis. Her exam was overall benign, she has no CVA tenderness, no active vomiting to suggest pyelonephritis. Her back pain is vague, she is very well-appearing, do not think this is renal colic. Furthermore she has no dysuria. She has no risk factors for traveler's diarrhea or C diff, she likely has viral gastroenteritis, again her diarrhea is minimal as well. I do not feel she requires advanced imaging at this time. I have independently reviewed the following tests: Labs: No leukocytosis, not anemic, no electrolyte abnormality, LFTs are at her baseline, urine [place] infected, [place] [id number] pelvic US: US/US OB pelvic and transvaginal IMPRESSION: Findings suggestive of twin gestations, with an estimated gestational age of 5 weeks and 2 days. A yolk sac is seen in one of the sacs. No poles are identified at this time. Follow-up is recommended. Lab Data 12/02/24 12:14 12/02/24 12:14 Labs: Lab Results 12/02/24 Range/Units 12:14 WBC 9.3 (4.8-10.8) X10*3/uL RBC 5.07 (4.20-5.50) X10*6/uL Hgb 10.6 L (12.0-16.0) g/dl Hct 33.4 L (37.0-47.0) % MCV 65.9 L (80.0-98.0) fL MCH 20.9 L (27.0-33.0) pg MCHC 31.7 (31.0-35.0) g/dl RDW 18.6 H (11.0-16.0) % Plt Count 448 H (160-400) X10*3/uL MPV 9.8 (9.4-12.3) fL Immature Gran % (Auto) 0.2 (0.0-0.4) % Neut % (Auto) 62.5 (45-73) % Lymph % (Auto) 26.4 (20-40) % [place] % (Auto) 9.8 (2-11) % Eos % (Auto) 0.6 (0-4) % Baso % (Auto) 0.5 (0-2) % Lymph # (Auto) 2.5 (1.2-4.9) X10*3/uL [place] # (Auto) 0.9 (0.1-1.2) X10*3/uL Eos # (Auto) 0.1 (0.0-0.4) X10*3/uL Baso # (Auto) 0.1 (0.0-0.2) X10*3/uL Abs Immat Gran (auto) 0.02 (0.00-0.03) X10*3/uL Absolute Neuts (auto) 5.8 (2.0-8.3) x10*3/uL Absolute Nucleated RBC 0.000 (0.0-0.012) X10*3/uL Nucleated RBC % (auto) 0.0 (0.0-0.2) /100WBC Sodium 137 (135-145) mmol/L Potassium 3.7 (3.3-5.1) mmol/L Chloride 110 H (96-108) mmol/L Carbon Dioxide 24 (22-29) mmol/L Anion Gap 7 L (12-20) BUN 8 L (9-16) mg/dL Creatinine 0.63 (0.5-1.4) mg/dL Estim Creat Clear Calc 118.7 Estimated GFR > 60 Random Glucose 86 (60-115) mg/dL Calcium 8.6 D (8.4-10.2) mg/dL Magnesium 1.9 (1.6-2.6) mg/dL Total Bilirubin 0.3 (0.0-1.0) mg/dL AST 30 (5-31) U/L ALT 89 H (0-31) U/L Alkaline Phosphatase 211 H (39-117) U/L Total Protein 7.1 (6.5-8.0) g/dL Albumin 3.7 (3.5-5.0) g/dL Lipase 20 (8-78) U/L Beta HCG, Quant 87308 mIU/mL Urine Color Yellow Urine Appearance Clear Urine pH 5.5 (5.0-9.0) Ur Specific [place] 1.025 (1.005-1.025) Urine Protein Negative (Neg-Trace) mg/dL Urine Glucose (UA) Negative (Negative) mg/dL Urine Ketones Negative (Negative) mg/dL Urine Blood Negative (Negative) Urine Nitrite Negative (Negative) Ur Leukocyte Esterase Negative (Negative) Influenza Type A (PCR) NEGATIVE (Negative) Influenza Type B (PCR) NEGATIVE (Negative) RSV RNA Qual (PCR) NEGATIVE (Negative) SARS-CoV-2 RNA (RT-PCR) NEGATIVE (Negative) Discharge Plan Discharge Clinical Impression: and not yet delivered in first trimester Patient Disposition: Home, Self-Care Instructions: Acute Diarrhea (ED), First Trimester (ED) Additional Instructions: You were found to be approximately 5 weeks and 2 days , the ultrasound findings are suggestive of a twin . 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 Take the vitamins as directed. The remainder of your screening labs were normal, your urine is not infected. See home care instructions for the diarrhea that you are experiencing, this could be related to the , or this could be viral. Prescriptions: New PNV cmb#95-ferrous fumarate-FA [] 28 mg iron- 800 mcg tablet 1 tab PO DAILY Qty: 30 0RF No Action fluticasone propionate [Flonase Allergy Relief] 50 mcg/actuation spray,suspension 1 spray intranasal DAILY Qty: 16 0RF Rx Instructions: administer into each nostril metronidazole [Flagyl] 500 mg tablet 500 mg PO BID 7 Days Qty: 14 0RF Clotrimazole 3 Day 2 % cream 1 appful vaginal BEDTIME 3 Days 0RF diphenhydramine HCl [Benadryl] 25 mg capsule 25 mg PO TID PRN (Reason: allergic reaction) Qty: 14 0RF Zyrtec 10 mg capsule 10 mg PO DAILY PRN (Reason: allergy symptoms) Qty: 14 0RF prednisone 20 mg tablet 40 mg PO DAILY 5 Days Qty: 10 0RF Vitamin Plus Low Iron 27 mg iron- 1 mg tablet 1 tab PO DAILY Qty: 30 11RF Interventions: ED Discharge Assessment Last Done: 12/02/24 15:50 Discharge Date/Time: 12/02/24 15:50 Print Language: Finnish
[2024-12-02 12:20] LABS: MANUAL DIFF FLAG NO
[2024-12-02 12:24] LABS: Basophils Absolute Auto 0.1 X10*3/uL (0.0-0.2); Basophils Percent Auto 0.5 % (0-2); Eosinophils Absolute Auto 0.1 X10*3/uL (0.0-0.4); Eosinophils Percent Auto 0.6 % (0-4); Hematocrit 33.4 % (37.0-47.0); Hemoglobin 10.6 g/dl (12.0-16.0); Imm Gran Abs Auto 0.02 X10*3/uL (0.00-0.03); Imm Gran Pct Auto 0.2 % (0.0-0.4); Lymphocytes Absolute Auto 2.5 X10*3/uL (1.2-4.9); Lymphocytes Percent Auto 26.4 % (20-40); Mean Corpuscular HGB Conc 31.7 g/dl (31.0-35.0); Mean Corpuscular Hemoglobin 20.9 pg (27.0-33.0); Mean Corpuscular Volume 65.9 fL (80.0-98.0); Mean Platelet Volume 9.8 fL (9.4-12.3); Monocytes Absolute Auto 0.9 X10*3/uL (0.1-1.2); Monocytes Percent Auto 9.8 % (2-11); Neutrophils Absolute Auto 5.8 x10*3/uL (2.0-8.3); Neutrophils Percent Auto 62.5 % (45-73); Platelet Count 448 X10*3/uL (160-400); Red Blood Count 5.07 X10*6/uL (4.20-5.50); Red Cell Distribution Width 18.6 % (11.0-16.0); White Blood Count 9.3 X10*3/uL (4.8-10.8)
[2024-12-02 12:28] LABS: Appearance Urine Clear; Color Urine Yellow; Glucose Urine UA Negative (Negative); Leukocyte Esterase Urine Negative (Negative); Nitrite Urine Negative (Negative); PH 5.5 (5.0-9.0); Specific Gravity - Urine 1.025 (1.005-1.025); Urine Blood Negative (Negative); Urine Ketones Negative (Negative); Urine Protein Negative (Neg-Trace)
[2024-12-02 12:46] LABS: HCG Quantitative 10144 mIU/mL
[2024-12-02 12:51] LABS: Alanine Aminotransferase 89 U/L (0-31); Albumin Level 3.7 g/dL (3.5-5.0); Alkaline Phosphatase 211 U/L (39-117); Anion Gap 7 (12-20); Aspartate Amino Transferase 30 U/L (5-31); Bilirubin Total 0.3 mg/dL (0.0-1.0); Blood Urea Nitrogen 8 mg/dL (9-16); Calcium 8.6 mg/dL (8.4-10.2); Carbon Dioxide 24 mmol/L (22-29); Chloride 110 mmol/L (96-108); Creatinine Clr Calc Pharmacy 118.7; Estimated Glomerular Filt Rate > 60; Glucose Random 86 mg/dL (60-115); Lipase 20 U/L (8-78); Magnesium 1.9 mg/dL (1.6-2.6); Potassium 3.7 mmol/L (3.3-5.1); Sodium 137 mmol/L (135-145); Total Protein 7.1 g/dL (6.5-8.0)
[2024-12-02 12:59] LABS: Influenza A PCR NEGATIVE (Negative); Influenza B PCR NEGATIVE (Negative); Resp Syncy Virus RNA Qual PCR NEGATIVE (Negative); SARS COV2 PCR INHOUSE NEGATIVE (Negative)
[2024-12-02 15:33] VITALS: BP 141/81; PULSE 100; RESP 16; TEMP 36.7; O2SAT 100
[2024-12-02 15:50] VITALS: BP 141/81; PULSE 100; RESP 16; TEMP 36.7; O2SAT 100
== END 2024-12-02 15:50 | disposition home or self-care (01) ==
PROVIDERS: Physician Assistant Medical; Emergency Provider Emergency Medicine Emergency Medical Services; PCP Internal Medicine
DX: O26.891 Other specified pregnancy related conditions, first trimester (principal); M54.9 Dorsalgia, unspecified; R10.9 Unspecified abdominal pain; R19.7 Diarrhea, unspecified; Z03.818 Encounter for observation for suspected exposure to other biological agents ruled out
CPT/HCPCS: 0241U; 36415; 76801; 76802; 76817; 80053; 81003; 83690; 83735; 84702; 85025; 99282; 99284

== ENCOUNTER → 2024-12-02 12:01 | Outpatient (BNV) | payer OTHER, SELFPAY | PROVIDERS: PCP Internal Medicine; Visit Provider Radiology Diagnostic Radiology | DX: Z36.9 Encounter for antenatal screening, unspecified (principal) | CPT/HCPCS: 76801; 76817 ==